=== PATIENT | female | born 1965 | race Caucasian/White ===

== ENCOUNTER 2017-07-04 13:12 | Emergency (ER) | payer BC ==
[~2017-07-04] VITALS: Ht 160 cm; Wt 74.8 kg
[~2017-07-04 13:12] MED LIST: ALBUTEROL2.5 MG/3 M INH; AMLODIPINE BESYL5 MG PO; AZITHROMYCIN250 MG PO; BACLOFEN10 MG PO; BENZONATATE100 MG PO; CARAFATE1 GM/10 ML PO; CATAPRES-TTS 31 EACH TD; CLARITHROMYCIN500 MG PO; CLONIDINE1 EAC2 TD; CODEINE-GUAIFE120 ML PO; CYMBALTA30 MG PO; DIAZEPAM5 MG PO; DOXEPIN HCL10 MG PO; DOXEPIN HCL25 MG PO; FAMOTIDINE20 MG PO; FLORASTOR250 MG PO; FLOVENT HFA12 GM INH; GUAIFENESIN-CODE5 ML PO; HYDROMORPHONE HC2 MG PO; IPRAT-ALBUT 0.5-3 ML INH; LASIX20 MG PO; LEVOFLOXACIN500 MG PO; LOSARTAN POTAS100 MG PO; LOSARTAN-HCTZ1 EAC2 PO; MACROBID 100 M100 MG PO; METOCLOPRAMIDE10 MG PO; MONUROL3 GM PO; MORPHINE SULFAT15 MG PO; NITROFURANTOIN50 MG PO; NORCO 5-325 TA1 EACH PO; NORVASC10 MG PO; NOVOLOG100 UNIT/1; OMEPRAZOLE20 MG PO; ONDANSETRON ODT4 MG PO; OXYCODONE HCL5 MG PO; PHENAZOPYRIDIN100 MG PO; PHENERGAN25 MG RC; PREDNISONE10 MG PO; PREDNISONE20 MG PO; PROAIR HFA8.5 GM INH; PROMETHAZINE HC25 M1 PO; PROMETHEGAN25 MG PR; PYRIDIUM200 MG PO; VALIUM5 MG PO; VANCOMYCIN HCL125 MG PO; VENTOLIN HFA18 GM IH; ZOFRAN ODT4 MG PO
--- OUTSIDE RECORDS SUMMARY | 2017-07-04 14:21 | XMS | Clinical Summary ---
Demographics + + + | Address | [address] | | | [place] [address] | + + + | Home Phone | | + + + | Preferred Language | Unknown | + + + | Marital Status | | + + + | Sabianism Affiliation | PRO | + + + | Race | White | + + + | Ethnic Group | Not or | + + + Author + + + | Author | [facility] | + + + | Organization | [facility] | + + + | Address | Unknown | + + + | Phone | Unavailable | + + + Support +------+ + + + +-------+ | Name | Relationship | Address | Phone | +------+ + + + +-------+ ECON | [address] | | [place] | [address] | +------+ + + + +-------+ ECON | Unknown | | +------+ + + + +-------+ Care Team Providers + +------+ + | Care Double Needle Operator Name | Role | Phone | + +------+ + | Lacho Mcgarry MD | PP | Unavailable | + +------+ + Source Comments ANASTASIAMARLON is fully live on both EpicCare Ambulatory and EpicCare InPatient.[facility] Allergies + + + + + + | Active Allergy | Reactions | Severity | Noted | Comments | | | | | Date | | + + + + + + | Sulfa (Sulfonamide | Rash | | 07/16/19 | "burning" | | Antibiotics) | | | 10 | | + + + + + + Current Medications + + +-------+---------+------+------+-------+ | Prescription | Sig. | Disp. | Refills | Star | End | Statu | | | | | | t | Date | s | | | | | | Date | | | + + +-------+---------+------+------+-------+ | clonidine 0.3 | Apply 1 Patch to | | | 07/02 | | Activ | | mg/24 hr Transdermal | skin every seven | | | 10/18 | | e | | Patch Weekly | days. | | | 10 | | | + + +-------+---------+------+------+-------+ | DULoxetine 30 mg | Take 30 mg by mouth | | | | | Activ | | oral capsule,delayed | once daily. | | | | | e | | release(DR/EC) | | | | | | | + + +-------+---------+------+------+-------+ | omeprazole 20 mg | Take 20 mg by mouth | | | | | Activ | | oral capsule,delayed | two times daily. | | | | | e | | release(DR/EC) | | | | | | | + + +-------+---------+------+------+-------+ | doxepin 25 mg oral | Take 100 mg by mouth | | | | | Activ | | capsule | once daily at | | | | | e | | | bedtime. | | | | | | + + +-------+---------+------+------+-------+ | albuterol 90 | Inhale 1-2 puffs | | | | | Activ | | mcg/actuation | every four hours as | | | | | e | | inhalation HFA | needed. | | | | | | | aerosol inhaler | | | | | | | + + +-------+---------+------+------+-------+ | insulin aspart | Inject 0-10 Units | | | | | Activ | | (NOVOLOG) 100 | under the skin | | | | | e | | unit/mL subcutaneous | (SUBC) three times | | | | | | | solution | daily before meals. | | | | | | | | And take 0-5 units | | | | | | | | nightly | | | | | | + + +-------+---------+------+------+-------+ | prochlorperazine | Insert 25 mg | | | | | Activ | | 25 mg rectal | rectally every six | | | | | e | | suppository | hours as needed. | | | | | | + + +-------+---------+------+------+-------+ | morphine 15 mg | Take 7.5 mg by mouth | | | | | Activ | | oral | every three hours | | | | | e | | tabletIndications: | as needed. | | | | | | | Pain | Indications: Pain | | | | | | + + +-------+---------+------+------+-------+ | diazepam 5 mg oral | Take 5 mg by mouth | | | | | Activ | | tablet | three times daily. | | | | | e | + + +-------+---------+------+------+-------+ | albuterol 0.083% | Inhale 2.5 mg every | | | | | Activ | | 2.5 mg /3 mL (0.083 | four hours as | | | | | e | | %) inhalation | needed. | | | | | | | solution for | | | | | | | | nebulization | | | | | | | + + +-------+---------+------+------+-------+ | hydrOXYzine | Take 25 mg by mouth | | | | | Activ | | pamoate 25 mg oral | four times daily as | | | | | e | | capsuleIndications: | needed. Indications: | | | | | | | For nausea | For nausea | | | | | | + + +-------+---------+------+------+-------+ | ondansetron ODT 4 | Take 4 mg by mouth | | | | | Activ | | mg oral | every six hours as | | | | | e | | tablet,disintegratin | needed. Indications: | | | | | | | gIndications: For | For nausea | | | | | | | nausea | | | | | | | + + +-------+---------+------+------+-------+ | sucralfate 100 | Take 10 mL by mouth | | | | | Activ | | mg/mL oral | four times daily. | | | | | e | | suspension | | | | | | | + + +-------+---------+------+------+-------+ | furosemide 20 mg | Take 20 mg by mouth | | | | | Activ | | oral tablet | once daily. | | | | | e | + + +-------+---------+------+------+-------+ | fluticasone | Inhale 2 puffs two | | | | | Activ | | (FLOVENT HFA) 220 | times daily. | | | | | e | | mcg/actuation | | | | | | | | inhalation aerosol | | | | | | | | (aero) | | | | | | | + + +-------+---------+------+------+-------+ | amLODIPine 10 mg | Take 10 mg by mouth | | | | | Activ | | oral tablet | once daily. | | | | | e | + + +-------+---------+------+------+-------+ | losartan 100 mg | Take 100 mg by mouth | | | | | Activ | | oral tablet | once daily. | | | | | e | + + +-------+---------+------+------+-------+ | verapamil SR 240 | Take 240 mg by mouth | | | | | Activ | | mg oral tablet | two times daily. | | | | | e | | extended release | | | | | | | + + +-------+---------+------+------+-------+ Active Problems + + + | Problem | Noted Date | + + + | Nausea & vomiting | 06/24/2013 | + + + | Abdominal pain | 06/24/2013 | + + + | Diabetes mellitus (HCC) | 06/23/2013 | + + + + + | Overview: A1C 5.6 05/2013 | + + + + + | History of Clostridium difficile infection | 06/23/2013 | + + + + + | Overview: S/p fecal transplant 07/2012 | + + +--------+ + | Asthma | 06/23/2013 | +--------+ + + + | Overview: requiring intubation in 2008. 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 | + + + Resolved Problems + + + + | Problem | Noted | Resolved | | | Date | Date | + + + + | Vocal fold polyp | 07/16/19 | | | | 10 | 0 | + + + + Family History + + +------+ + | Medical History | Relation | Name | Comments | + + +------+ + | Cancer | Mother | | | + + +------+ + + +------+--------+ + | Relation | Name | Status | Comments | + +------+--------+ + | Mother | | | | + +------+--------+ + Social History + + + +--------+ + | Tobacco Use | Types | Packs/Day | Years | Date | | | | | Used | | + + + +--------+ + | Former Smoker | Cigarettes | 1 | 15 | Quit: 07/30/2009 | + + + +--------+ + + + | Comments: down to 0.5 ppd for past 5 yrs. E cigarette | + + + + +---------+ + | Alcohol Use | Drinks/We | oz/Week | Comments | | | ek | | | + + +---------+ + | No | | | | + + +---------+ + + + + | Sex Assigned at | Date Recorded | | | | + + + | Not on file | | + + + Last Filed Vital Signs + + + + | Vital Sign | Reading | Time Taken | + + + + | Blood Pressure | 146/84 | 06/25/2013 8:36 AM PST | + + + + | Pulse | 83 | 06/25/2013 8:36 AM PST | + + + + | Temperature | 36.9 C (98.4 F) | 06/25/2013 8:36 AM PST | + + + + | Respiratory Rate | 18 | 06/25/2013 8:36 AM PST | + + + + | Oxygen Saturation | 97% | 06/25/2013 8:36 AM PST | + + + + | Inhaled Oxygen | - | - | | Concentration | | | + + + + | Weight | 77.1 kg (170 lb) | 06/23/2013 8:58 AM PST | + + + + | Height | 162.6 cm (5' 4") | 06/23/2013 9:28 PM PST | + + + + | Body Mass Index | 29.18 | 06/23/2013 8:58 AM PST | + + + + Plan of Treatment + + + + + | Health Maintenance | Due Date | Last Done | Comments | + + + + + | INFLUENZA VACCINE | | | | | (FLU SHOT) | 7 | | | + + + + + Results Not on filefrom Last 3 Months
--- NOTE | 2017-07-06 14:48 | EKG ---
[facility] [address] [place] [address] Signed Poor data quality, interpretation may be adversely affected Sinus tachycardia Anterior infarct (cited on or before 07-AUG-2016) Abnormal ECG When compared with ECG of 07-AUG-2016 13:54, Nonspecific T wave abnormality, worse in Inferior leads Confirmed by TOBI BOLAÑOS MD ([id number]) on 07/06/2017 2:47:54 PM Electronically Signed By: TOBI BOLAÑOS MD 07/06/17 1448 PATIENT NAME: STEPHANIE MOODY Electrocardiogram DATE OF : 61 PHYSICIAN: TOBI BOLAÑOS MD REPORT #: [id number] REPORT IS CONFIDENTIAL AND NOT TO BE RELEASED WITHOUT AUTHORIZATION
[2017-07-30] MEDS ORDERED: PROMETHAZINE HC25 M1 PO (16:52)
[2017-07-30] MEDS ORDERED: NOVOLOG100 UNIT/1 SUB-Q (17:14)
== END 2017-07-04 18:33 | disposition short-term general hospital (02) ==
LOC: ED 13:12
DX: J45.902 Unspecified asthma with status asthmaticus (principal); E11.9 Type 2 diabetes mellitus without complications; Z90.710 Acquired absence of both cervix and uterus; Z90.49 Acquired absence of other specified parts of digestive tract; Z87.891 Personal history of nicotine dependence; Z88.2 Allergy status to sulfonamides; Z79.899 Other long term (current) drug therapy; Z79.52 Long term (current) use of systemic steroids
CPT/HCPCS: 36600; 71045; 80053; 82803; 83735; 84484; 85025; 87502; 93005; 93010; 94640; 94660; 96374; 96375; 96376; 99285; J2060; J2270; J2405; J2550; J2930; J3475

== ENCOUNTER 2017-07-17 16:34 | Emergency (ER) | payer BC ==
[~2017-07-17] VITALS: Ht 160 cm; Wt 75.1 kg
--- OUTSIDE RECORDS SUMMARY | ~2017-07-17 | XMS | Clinical Summary ---
Demographics + + + | Address | [address] | | | [place] [address] | + + + | Home Phone | | + + + | Preferred Language | Unknown | + + + | Marital Status | | + + + | Hinduism Affiliation | PRO | + + + [...] + + +-------+ ECON | [address] | | [place] | [address] | +------+ + + + +-------+ ECON | Unknown | | +------+ + + + +-------+ Care Team Providers + +------+ + | Care Supervisor Coffee Name | Role | Phone | + +------+ + | Lacho Mcgarry MD | PP | Unavailable | + +------+ + Source Comments ANASTASIAMARLON is fully live on both EpicCare Ambulatory and EpicCare InPatient.[facility] Allergies + + + + + + [...]
--- OUTSIDE RECORDS SUMMARY | ~2017-07-17 | XMS | Clinical Summary ---
Demographics + + + | Address | [address] | | | [place] [address] | + + + | Home Phone | | + + + | Preferred Language | Unknown | + + + | Marital Status | | + + + | Hindu Affiliation | PRO | + + + [...] + + +-------+ ECON | [address] | | [place] | [address] | +------+ + + + +-------+ ECON | Unknown | | +------+ + + + +-------+ Care Team Providers + +------+ + | Care Director News Name | Role | Phone | + +------+ + | Lacho Mcgarry MD | PP | Unavailable | + +------+ + Source Comments ANASTASIAMARLON is fully live on both EpicCare Ambulatory and EpicCare InPatient.[facility] Allergies + + + + + + [...]
--- NOTE | 2017-07-18 12:22 | EKG ---
[facility] [address] [place], [place] [address] Signed Sinus tachycardia Rightward axis Anterior infarct (cited on or before 07-AUG-2016) Abnormal ECG When compared with ECG of 04-JUL-2017 14:33, No significant change was found Confirmed by EFREN CHE MD ([id number]) on 07/18/2017 12:22:36 PM Electronically Signed By: EFREN CHE MD 07/18/17 1222 PATIENT NAME: STEPHANIE MOODY Electrocardiogram DATE OF : 61 PHYSICIAN: EFREN CHE MD REPORT #: [id number] REPORT IS CONFIDENTIAL AND NOT TO BE RELEASED WITHOUT AUTHORIZATION
[2017-07-30] MEDS ORDERED: PROMETHAZINE HC25 M1 PO (16:52)
[2017-07-30] MEDS ORDERED: NOVOLOG100 UNIT/1 SUB-Q (17:14)
== END 2017-07-17 18:58 | disposition home or self-care (01) ==
LOC: ED 16:34
DX: J45.901 Unspecified asthma with (acute) exacerbation (principal); E11.9 Type 2 diabetes mellitus without complications; Z87.891 Personal history of nicotine dependence; Z88.2 Allergy status to sulfonamides; Z79.899 Other long term (current) drug therapy
CPT/HCPCS: 36415; 71045; 80053; 85025; 93005; 93010; 94640; 94660; 96374; 96375; 96376; 99283; J2060; J2930; J3010

== ENCOUNTER 2017-08-04 07:00 | Day surgery (SDC) | payer BC ==
[~2017-08-04] VITALS: Ht 162.6 cm; Wt 76.9 kg
[~2017-08-04 07:00] MED LIST changes: +NOVOLOG100 UNIT/1 SUB-Q
--- NOTE | 2017-08-04 09:38 | NUR ---
PT ALERT, ORIENTED AND SUPPORTED BY HER BOOKER. BOTH PLEASANT, PT A LITTLE ANXIOUS-BOOKER ENCOURAGING AND VERY SUPPORTIVE. PT REQUESTED PRAYER WILL CONTINUE TO FOLLOW NEEDED
[2017-08-04] MEDS ORDERED: HYDROMORPHONE HC4 MG PO (11:16)
--- NOTE | 2017-08-04 14:19 | NUR ---
08/04/17 1419 Carey Nassar 1101 PT ARRIVED IN PACU AWAKE TALKING TO STAFF. PORTABLE XRAY DONE. DR LOOKED AT XRAY AND PT OK TO USE ANYTIME. 1130 SIPPING ON WATER. 1145 DC INSTRUCTIONS GIVEN TO PT/SPOUSE. LEFT VIA W/C AT 1148.
--- NOTE | 2017-08-06 14:12 | OR ---
[facility] [address] [place], [place] [address] Signed DATE OF OPERATION: 08/04/2017 SURGEON: Renetta Galicia MD PREOPERATIVE DIAGNOSES: 1. Chronic recurrent life-threatening asthma. 2. Obesity. POSTOPERATIVE DIAGNOSES: 1. Chronic recurrent life-threatening asthma. 2. Obesity. PROCEDURES: 1. Right internal jugular Port-A-Cath placement (port over right pectoralis). 2. Surgeon-directed fluoroscopy. ANESTHESIA: Local with monitored anesthesia care; Elma Hutton CRNA. INDICATION: This is an obese, 52-year-old white woman is a patient of Dr. Servin. She has had several bouts of very severe asthmatic attacks, which have required intubation. She has exceptionally poor peripheral access. Request is made by Dr. Servin for consideration of a Port-A-Cath device to provide prophylaxis on the likely need for emergent venous access in the future. The risks of bleeding, infection, pneumothorax, failure of the device and other unforeseen complications related to its placement have been reviewed in detail. She understands and wished to proceed. FINDINGS: Easy access to the right internal jugular vein was noted with good dark nonpulsatile blood. The catheter was tunneled over the clavicle, so as to avoid risks of shear injury to the catheter and the port placed in the right pectoral area. Good function of catheter was noted at conclusion of procedure. DESCRIPTION OF PROCEDURE: The patient was brought to the operating room and placed in mild Trendelenburg position. The neck and torso were prepared with a chlorhexidine solution and draped sterilely. Preoperative antibiotic Ancef was given. Sequential compression device stockings were used. Her head was turned to the left and 1% lidocaine injected over the right sternocleidomastoid muscle. Using the Seldinger technique, the right internal jugular Electronically Signed By: RENETTA GALICIA MD 08/06/17 1412 PATIENT NAME: STEPHANIE MOODY OPERATIVE REPORT DATE OF : 61 REPORT #: [id number] PHYSICIAN: RENETTA GALICIA MD PCP: LACHO SERVIN MD REPORT IS CONFIDENTIAL AND NOT TO BE RELEASED WITHOUT AUTHORIZATION [facility] [address] [place], [place] [address] Signed vein was easily accessed with single pass showing dark nonpulsatile blood. A flexible J-wire was passed down the needle. Fluoroscopy was used to confirm the wire into the right heart system. A transverse incision was made over the right pectoralis after injection of local anesthesia, allowing for creation of a pocket. The port device was partially secured to the pectoralis fascia. At the insertion site of the right neck, an incision was made with an #11 blade and subsequently dilator and peel-away sheath introducer passed over the wire. The wire and dilator were removed and vigorous retrograde dark nonpulsatile bleeding was noted from the sheath. The previously inspected and irrigated Groshong catheter was passed down the introducer as far as possible and the peel-away sheath introducer removed. Aspiration on the catheter showed dark nonpulsatile blood. Fluoroscopy was used to withdraw the tip of the catheter to be in the superior vena cava. A tunneling device was passed from the catheter site to the pocket directly over the clavicle with all the care after local injection of anesthesia. The catheter was then drawn through the tunnel to the pocket itself. The catheter was cut to appropriate length and secured to the port device using the enclosed collar device. It was then secured to the pectoralis fascia more fully. It appeared to have a kink on and unfortunately. The port was freed from the pectoralis. The redundant catheter excised and a new collar and so forth used to reapply the catheter to the port. A definition some catheter withdrew from the superior vena cava no doubt from this. The port was then secured once again in a way that did not allow for kinking of the catheter in any way. Good function was noted with the angled Joyce needle. The pocket was then closed with interrupted 2-0 Vicryl and skin closed with running subcuticular 3-0 Vicryl. Access to the port was once again undertaken percutaneously with angled Joyce needle showing easy withdrawal of blood and easy infusion of heparinized saline. Steri-Strips were applied to the skin as was Mepilex silver sponge dressing. The neck incision was secured with a 3-0 Vicryl and a Steri-Strip. The patient was taken to the recovery room after awakening from sedation in good condition. Blood loss was less than 10 mL. The upright chest x-ray was performed in the recovery room showing no sign of complication. The tip of the catheter was in the upper superior vena cava, possibly the innominate vein, but the tip below the clavicular head and in good position. There is Electronically Signed By: RENETTA GALICIA MD 08/06/17 1412 PATIENT NAME: STEPHANIE MOODY OPERATIVE REPORT DATE OF : 61 REPORT #: [id number] PHYSICIAN: RENETTA GALICIA MD PCP: LACHO SERVIN MD REPORT IS CONFIDENTIAL AND NOT TO BE RELEASED WITHOUT AUTHORIZATION [address] [address] Signed no evidence of angulation deformity on the catheter in any way. MD RAMIRO [place]/MODL /[id number] cc: Lacho Servin MD Copies: LACHO SERVIN MD ~ Electronically Signed By: RENETTA GALICIA MD 08/06/17 1412 PATIENT NAME: STEPHANIE MOODY OPERATIVE REPORT DATE OF : 61 REPORT #: [id number] PHYSICIAN: RENETTA GALICIA MD PCP: LACHO SERVIN MD REPORT IS CONFIDENTIAL AND NOT TO BE RELEASED WITHOUT AUTHORIZATION
== END 2017-08-04 11:48 | disposition home or self-care (01) ==
LOC: DS 07:00
PROVIDERS: Surgery
PROC: 05HM33Z Insertion of Infusion Device into Right Internal Jugular Vein, Percutaneous Approach (ICD-10-PCS; 2017-08-04)
PROC: B513YZA Fluoroscopy of Right Jugular Veins using Other Contrast, Guidance (ICD-10-PCS; 2017-08-04)
PROC: 0JH60XZ Insertion of Tunneled Vascular Access Device into Chest Subcutaneous Tissue and Fascia, Open Approach (ICD-10-PCS; principal; 2017-08-04 08:45)
DX: J45.909 Unspecified asthma, uncomplicated (principal); E66.3 Overweight; R09.89 Other specified symptoms and signs involving the circulatory and respiratory systems; E11.9 Type 2 diabetes mellitus without complications; K21.9 Gastro-esophageal reflux disease without esophagitis; I10 Essential (primary) hypertension; Z88.5 Allergy status to narcotic agent; Z88.2 Allergy status to sulfonamides; Z88.8 Allergy status to other drugs, medicaments and biological substances; Z87.891 Personal history of nicotine dependence; Z98.890 Other specified postprocedural states; Z90.710 Acquired absence of both cervix and uterus; Z90.49 Acquired absence of other specified parts of digestive tract; Z79.52 Long term (current) use of systemic steroids; Z79.899 Other long term (current) drug therapy; Z79.891 Long term (current) use of opiate analgesic; Z68.28 Body mass index [BMI] 28.0-28.9, adult
CPT/HCPCS: 00532; 71045; 77001; C1788; J0690; J1644; J1720; J2250; J2405; J2704; J3010; J7120

== ENCOUNTER 2018-01-29 09:34 | Emergency (ER) | payer BC ==
[~2018-01-29] VITALS: Ht 162.6 cm; Wt 76.9 kg
[~2018-01-29 09:34] MED LIST changes: +HYDROMORPHONE HC4 MG PO
[2018-01-29] MEDS ORDERED: CLONIDINE1 EAC2 TD (09:51)
[2018-01-29] MEDS ORDERED: DIAZEPAM5 MG PO (09:51)
[2018-01-29] MEDS ORDERED: CIPRO500 MG PO (13:06)
[2018-01-29] MEDS ORDERED: NORCO 5-325 TA1 EACH PO (13:06)
== END 2018-01-29 13:21 | disposition home or self-care (01) ==
LOC: ED 09:34
DX: N39.0 Urinary tract infection, site not specified (principal); E11.9 Type 2 diabetes mellitus without complications; Z87.891 Personal history of nicotine dependence; Z88.2 Allergy status to sulfonamides; Z88.8 Allergy status to other drugs, medicaments and biological substances; Z88.5 Allergy status to narcotic agent
CPT/HCPCS: 36415; 74176; 80053; 81001; 83605; 83690; 85025; 87088; 96361; 96374; 96375; 96376; 99284; J0696; J1885; J2270; J2405; J7030

== ENCOUNTER 2018-12-02 19:02 | Emergency (ER) | payer BC ==
[~2018-12-02] VITALS: Ht 162.6 cm; Wt 81.9 kg
[~2018-12-02 19:02] MED LIST changes: +CIPRO500 MG PO; +NOVOLOG FL100 UNIT/1 SUB-Q; +VIRTUSSIN AC L118 ML PO
--- OUTSIDE RECORDS SUMMARY | 2018-12-02 19:04 | XMS ---
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 Niurka VISIT COUNT (12 MO.) [address] [place] [address] TOTAL 4 NOTE: Visits indicate total known visits. ED/UCC VISIT TRACKING (12 MO.) 12/02/2018 19:03 [facility] [place] TYPE: Emergency COMPLAINT: - BURN 11/02/2018 10:50 [facility] [place] TYPE: Emergency COMPLAINT: - DIFFICULTY BREATHING DIAGNOSES: - Allergy status to other drugs, medicaments and biological substances status - Shortness of breath - Type 2 diabetes mellitus without complications - residential (current) use of systemic steroids - Allergy status to sulfonamides status - oysterman (current) use of insulin - Other dedicated intermodal truck driver (current) drug therapy - Allergy status to narcotic agent status - Personal history of nicotine dependence - Unspecified asthma with (acute) exacerbation 04/08/2018 17:23 [facility] TYPE: Emergency COMPLAINT: - SOB 01/29/2018 09:34 [facility] TYPE: Emergency COMPLAINT: - ABDOMINAL/FLANK PAIN DIAGNOSES: - Urinary tract infection, site not specified - Allergy status to other drugs, medicaments and biological substances status - Unspecified abdominal pain - Personal history of nicotine dependence - Type 2 diabetes mellitus without complications - Allergy status to sulfonamides status - Allergy status to narcotic agent status INPATIENT VISIT TRACKING (12 MO.) 11/02/2018 14:31 [facility] TYPE: General Medicine DIAGNOSES: - Asthma exacerbation [facility]2018 [facility] TYPE: General Medicine DIAGNOSES: - Asthma - Severe persistent asthma with (acute) exacerbation 04/08/2018 22:21 [facility] [place] TYPE: Critical Care COMPLAINT: - ASTHMA EXACERBATION DIAGNOSES: - Personal history of other infectious and parasitic diseases - Essential (primary) hypertension - Pneumonia, unspecified organism - Acute frontal sinusitis, unspecified - residential (current) use of systemic steroids - Other chest pain - Allergy status to narcotic agent status - Other dedicated intermodal truck driver (current) drug therapy - Allergy status to other drugs, medicaments and biological substances status - residential (current) use of opiate analgesic - oysterman (current) use of aromatase inhibitors - Acute respiratory failure with hypoxia - Anxiety disorder, unspecified - Acute frontal sinusitis, unspecified - residential (current) use of antibiotics - Prediabetes - Allergy status to sulfonamides status - Prediabetes - Allergy status to narcotic agent status - oysterman (current) use of opiate analgesic - Personal history of nicotine dependence - Other nursing home (current) drug therapy - Nausea with vomiting, unspecified - residential (current) use of antibiotics - Pneumonia, unspecified organism - Nausea with vomiting, unspecified - Essential (primary) hypertension - Allergy status to other drugs, medicaments and biological substances status - oysterman (current) use of aromatase inhibitors - Allergy status to sulfonamides status - Sedative, hypnotic or anxiolytic dependence, uncomplicated - Personal history of nicotine dependence - Unspecified asthma with (acute) exacerbation - oysterman (current) use of systemic steroids - Anxiety disorder, unspecified - Sedative, hypnotic or anxiolytic dependence, uncomplicated - Other chest pain - Personal history of other infectious and parasitic diseases - Acute respiratory failure with hypoxia [email or web address]
[2018-12-02] MEDS ORDERED: NORCO 5-325 TA1 EACH PO (19:24)
== END 2018-12-02 19:37 | disposition home or self-care (01) ==
LOC: ED 19:02
PROC: 2W24X4Z Dressing of Chest Wall using Bandage (ICD-10-PCS; principal; 2018-12-02)
DX: T21.21XA Burn of second degree of chest wall, initial encounter (principal); E11.9 Type 2 diabetes mellitus without complications; Z87.891 Personal history of nicotine dependence; Z88.2 Allergy status to sulfonamides; Z90.49 Acquired absence of other specified parts of digestive tract; Z90.710 Acquired absence of both cervix and uterus; Z88.5 Allergy status to narcotic agent; Z88.8 Allergy status to other drugs, medicaments and biological substances; Z79.4 Long term (current) use of insulin; Z79.899 Other long term (current) drug therapy; X12.XXXA Contact with other hot fluids, initial encounter
CPT/HCPCS: 16020; 99283-25

== ENCOUNTER 2019-02-11 10:36 | Inpatient (IN) | payer BC ==
[~2019-02-11] VITALS: Ht 162.6 cm; Wt 85.7 kg
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
--- NOTE | 2019-02-11 14:45 | NUR ---
PT IS AWAKE AND ALERT X4, ABLE TO TRANSFER FROM [place] TO BED INDEPENDENTLY. PT C/O 7/10 RIB PAIN WITH COUGHING. PT HAS SMALL AMOUNTS OF EMISIS AFTER COUGHING FITS. PT IV SITES ARE INTACT, BLOOD RETURN IS OBTAINED EASILY, BOTH SITES FLUSH EASILY. PT SKIN IS INTACT.
--- NOTE | 2019-02-11 15:07 | NUR ---
30 MG IV TORADOL GIVEN FOR PT C/O 12/08 RIB/BACK PAIN. 10 MG IV COMPAZINE GIVEN FOR CONTINUED EPISODES OF EMISIS.
--- NOTE | 2019-02-11 16:08 | NUR ---
VISTARIL 100 MG PO GIVEN PER PT REQUEST FOR "SOMETHING FOR ANXIETY". TESSALON PEARLS AND ROBITUSSIN GIVEN FOR PT CONTINUED HARSH COUGH. PT ABLE TO BETSY APPLESAUCE WITH MEDS.
--- NOTE | 2019-02-11 16:38 | NUR ---
PT ABLE TO AMBULATE TO BATHROOM INDEPENDENTLY, VOIDED 200 ML. THEN AMBULATED BACK TO BED. PT DENIES NAUSEA AT THIS TIME AND IS ABLE TO TAKE HOT TEA. PT STATES "I'M NOT COUGHING ANY MORE". PT DENIES PAIN AT THIS TIME.
--- NOTE | 2019-02-11 17:30 | NUR ---
pt given 1 mg iv ativan for reported anxiety.
--- NOTE | 2019-02-11 19:30 | NUR ---
PT REPORT RECIEVED FROM AURELIA SANDS, CARE OF PT ASSUMED AT THIS TIME.
--- NOTE | 2019-02-11 19:53 | NUR ---
IN PT ROOM FOR ASSESSMENT AND MEDICATION ADMINISTRATION. PT COMPLAINS OF NAUSEA, BUT DENIES PAIN. SPOKE WITH PT ABOUT PLAN OF CARE FOR NIGHT AND EDUCATION ABOUT MEDICATION MANAGEMENT. PT VERBALIZED UNDERSTANDING OF EDUCATION. UPON ASSESSMENT, PT HAS AUDIBLE EXPIRATORY AND INSPIRATORY WHEEZES. RT IN TO ADMINISTER BREATHING TREATMENT AT THIS TIME WELL.
--- NOTE | 2019-02-11 21:05 | NUR ---
IN PT ROOM FOR MEDICATION ADMINISTRATION. PT UP TO BATHROOM. STAND BY ASSIST ONLY REQUIRED FOR AMBULATION. GAIT STEADY. PT PERFORMED PM ADLS AT THIS TIME. REPORTS MODERATE ANXIETY, BUT NO REPORTS OF PAIN. AUDITORY EXPIRATORY AND INSPIRATORY WHEEZES WORSEN WITH AMBULATION AND ACTIVITY. RESPIRATORY RATE IN THE HIGH 20S. OXYGEN SATURATIONS REMAIN IN THE MID 90S. CALL LIGHT WITHIN REACH. NO FURTHER REQUESTS AT THIS TIME.
--- NOTE | 2019-02-11 21:28 | NUR ---
IN TO ADMINISTER PRN MEDICATION FOR ANXIETY, PT REPORTS A RETURNING OF NAUSEA AT THIS TIME. DENIES NEED FOR MEDICAITON. CALL LIGHT WITHIN REACH. NO FURTHER REQUESTS AT THIS TIME.
--- NOTE | 2019-02-11 23:39 | NUR ---
PT REPORTS ONGOING 8/10 RIB PAIN THAT HAS NOT DECREASED WITH TORIDOL. TWO MG OF MORPHINE ADMINISTERED AT THIS TIME. PT ALSO COMPLAINS OF SEVERE ABDOMINAL CRAMPING. BOWEL TONES ACTIVE IN ALL FOUR QUADRANTS.
--- NOTE | 2019-02-11 23:58 | NUR ---
PT MEDICATED FOR NAUSEA. REPORTS PAIN HAS NOT REDUCED AT ALL SINCE DOSE OF MORPHINE WAS ADMINISTERED.
--- NOTE | 2019-02-12 02:13 | NUR ---
RESPONDED TO CALL LIGHT, PT REQUESTING MEDICATION FOR ANXIETY. PT UP TO BATHROOM, HEART RATE IN THE 120S WITH AMBULATION. PT MEDICATED AT THIS TIME.
--- NOTE | 2019-02-12 03:40 | NUR ---
IN TO ASSESS PATIENT, COMPLAINS OF NAUSEA, AND SHORTNESS OF BREATH. PT CONTINUES TO HAVE AUDIBLE INSPIRATORY AND EXPIRATORY WHEEZES, AND WHEEZES IN BOTH LUNG BASES. HEART RATE REMAINS BETWEEN 110-120. NAUSEA MEDICATION GIVEN. RT CALLED TO ADMINISTER BREATHING TREATMENT.
--- NOTE | 2019-02-12 04:12 | NUR ---
PTS HEART RATE SUSTAINED IN THE 110'S- 120'S AT REST FOR THE LAST SEVERAL HOURS. DR BOLAÑOS NOTIFIED. NO NEW ORDERS AT THIS TIME.
--- NOTE | 2019-02-12 05:17 | NUR ---
RESPONDED TO PATIENT CALL LIGHT, GIVEN TEA AND WATER. PT DENIES NAUSEA BUT IS REQUESTING PAIN MEDICATION. EDUCATED PATIENT ON TIME MEDICATION IS DUE. PT STATES HER PAIN IS TOLERABLE AND SHE CAN WAIT FOR MEDICATION. REFUSES TYLENOL.
--- NOTE | 2019-02-12 06:19 | NUR ---
PT RECIEVED IV PAIN MEDICATION. LOOKING AT MENU TO CHOSE A BREAKFAST. IS REQUESTING A LAXATIVE AT THIS TIME.
[2019-02-12] MEDS ORDERED: AMLODIPINE BESY10 MG PO ×2 (07:57)
[2019-02-12] MEDS ORDERED: DIAZEPAM5 MG PO ×2 (07:59)
[2019-02-12] MEDS ORDERED: PREDNISONE20 MG PO (08:01)
--- NOTE | 2019-02-12 08:20 | NUR ---
IV SITE IN RT FOREARM IS INTACT, NO REDNESS OR SWELLING NOTED, FLUSHES EASILY. INDWELLING PORT SITE RETURNS BLOOD POSITIONALLY, FLUSHES EASILY, HEP LOCKED. PT C/O NAUSEA, 10 MG COMPAZINE IV GIVEN, PT C/O ANXIETY 1 MG IV ATIVAN AND PO 100 MG VISTARIL GIVEN, PT C/O 8/10 RIB PAIN, 30 MG IV TORADOL GIVEN. PT IS AWAKE AND ALERT X4. HAS FINISHED 100% OF HER BREAKFAST. PT ABLE TO AMBULATE TO THE BATHROOM INDEPENDENTLY.
--- NOTE | 2019-02-12 09:30 | NUR ---
IN TO SEE PT, HAS EXPLAINED THE PLAN OF CARE FOR THE NEXT 24 HOURS. PT EXPRESSES DESIRE TO GO HOME TODAY, IS NOT WILLING TO DC PT UNTIL TOMORROW DUE HER MEDICAL NEEDS.
--- NOTE | 2019-02-12 10:55 | NUR ---
FULL REPORT GIVEN TO AURORA MOSES ON MED/SURG. ALL QUESTIONS ANSWERED. NO MEDICATIONS IN PT KITS BIN.
--- NOTE | 2019-02-12 11:02 | NUR ---
PT TRANSFERED TO MED/SURG ROOM 109, ALL PERSONAL BELONGINGS WENT WITH PT. PT TRANSFERED IN THE ORA, BETSY ACTIVITY WELL. PT IS ALERT AND ORIENTED X4, HAS BEEN UPDATED ON THE PLAN OF CARE.
--- NOTE | 2019-02-12 11:24 | NUR ---
PT RECEIVED FROM CCU. PT RESTING IN BED. PT WITH COUGHING FIT. TACHYCARDIC HR IN 120'S, VS OTHERWISE WNL. P WITH INSPIRATORY AND EXPIRATORY WHEEZE THROUGHOUT, ON ROOM AIR. IV SALINE LOCKED. DISCUSSED PLAN OF CARE. PT REQUESTIGN WATER AND TEA, PROVIDED. CALL LIGHT WITHIN REACH.
--- NOTE | 2019-02-12 12:24 | NUR ---
PT GIVEN 3 UNITS SS HUMALOG FOR BG 212. PT RECEIVING NEB, PT REQUEST FOR ATIVAN WITH NEB, 1 MG IV GIVEN. PT RESTING IN BED. PT WITH GOOD APPETITE. PT DENIES OTHER NEEDS AT THIS TIME.
--- NOTE | 2019-02-12 14:03 | NUR ---
PT COMPLAINT OF FEELING NAUSEATED, GIVEN 12.5 MG IV PHENERGAN PER ORDER. IV SOLUMEDROL GIVEN. PT RESTING IN BED, FAMILY AT BEDSIDE. PT DENIES OTHER NEEDS AT THIS TIME.
--- NOTE | 2019-02-12 15:08 | NUR ---
Medications reconciled using pharmacy records and patient interview
--- NOTE | 2019-02-12 17:40 | NUR ---
PT BLOOD GLUCOSE 198, GIVEN 3 UNITS SS HUMALOG. PT AMBULATING TO BATHROOM, TACHYCARDIC WITH ACTIVITY. PT REQUESTING PAIN MEDICATION, GIVEN 2 MG IV MORPHINE PER ORDER. PT DENIES OTHER NEEDS AT THIS TIME.
--- NOTE | 2019-02-12 17:44 | NUR ---
PT TRANSFERED FROM CCU. PT ON ROOM AIR, INSPIRATORY AND EXPIRATORY WHEEZE THROUGHOUT, FREQUENT DRY HACKING COUGH. PT CALLS FREQUENTLY FOR ANTIANXIETY MEDICATIONS AND PAIN MEDICATION. PT TOLERATING CARB CONTROL DIET, BLOOD GLUCOSE 198 AT DINNER, RECEIVED 3 UNITS SS HUMALOG. PT INDEPENDENT IN ROOM, TACHYCARDIC WITH ACTIVITY. PORT TO RIGHT CHEST, HEPARIN LOCKED, IV TO RIGHT ARM SL. PT VOIDING QS.
--- NOTE | 2019-02-12 19:05 | NUR ---
REPORT RECEIVED FROM OFFGOING RNAURORA.
--- NOTE | 2019-02-12 20:01 | NUR ---
PT REQUESTS HER PRIMARY RN, MANAGER COMMODITIES TO ROOM. PT TALKING FAST, APPEARS ANXIOUS. PT STATES "I NEED SOMETHING FOR MY PAIN, AND IF NOTHING IS AVAILABLE, CALL THE DOCTOR." PRN AND SCHEDULED MEDICATIONS ADMINISTERED. PT ASSESSMENT COMPLETE. PT HAVING SMALL AMOUNTS OF EMESIS WHILE MANAGER COMMODITIES IN ROOM, STATES THIS IS RELATED TO COUGHING, DENIES NAUSEA. REPORTS SLIGHT SOB, IMPROVED WITH NEB TREAWTMENT. PT RATES PAIN 7/10 TO R SIDED RIBS AND BACK. PT STATES ALSO THAT HER "GUTS HURT". PT STATES, "MAYBE I HAVE C-DIFF". PT REPORTS EXPERIENCING SEVERAL LOOSE STOOLS. PT UP TO USE THE BATHROOM WHILE MANAGER COMMODITIES IN ROOM TO HAVE BM. PIV AND PORT ACCESSED FLUSHED. PT REPORTS PIV SITE TENDER, ASKS " IS THAT INFILTRATED?" NO S/SX OF INFILTRATION NOTED. FLUSHES WELL, NO BLOOD RETURN. PT PROVIDED WITH NEW HAT, TOILET PAPER REPLACED. PT DENIES FURTHER NEEDS. CALL LIGHT IN REACH.
--- NOTE | 2019-02-12 20:43 | NUR ---
PT RESTING IN BED WITH EYES CLOSED. RESPIRATIONS LABORED, EVEN, RR 22. PT DOES NOT WAKE WHILE TOWEL FOLDER IN DOORWAY, APPEARS TO BE SLEEPING. CALL LIGHT IN REACH.
--- NOTE | 2019-02-12 22:19 | NUR ---
ELECTRONIC WARFARE SPECIALIST TO PT'S ROOM FOR SCHEDULED MEDICATION ADMINISTRATION. PT RESTING IN BED WITH EYES CLOSED. RESPIRATIONS LABORED, EVEN, RR 18. PT WAKES EASILY TO VOICE. CONTNUES TO RATE PAIN 6/10 TO R RIBS/BACK. PT REPORTS ANOTHER LIQUID BM, VERY SMALL AMOUNT NOTED IN THE HAT UPON THIS WRITERS ASSESSMENT. PT DENIES FURTHER NEEDS. AGREES TO USE CALL LIGHT FOR NEEDS. CALL LIGHT IN REACH.
--- NOTE | 2019-02-13 00:14 | NUR ---
PT UTILIZES CALL LIGHT, REQUESTS HOT TEA, PRN MEDICATIONS. PRN'S ADMINISTERED. PT STATES "I NEED TO GO TO A DIFFERENT HOSPITAL." WHEN LIZZIETIER INQUIRES, PT STATES SHE NEEDS TO SEE HER CSR RETAIL AT [facility]. PT ALSO STATES THAT SHE HAD AN ABNORMAL ECHOCARDIOGRAM THAT SHE IS CONCERNED ABOUT. PT DENIES FURTHER NEEDS FROM THIS DIRECTOR TRADE. RT IN ROOM TO ADMINISTER NEB. CALL LIGHT IN REACH.
--- NOTE | 2019-02-13 00:40 | NUR ---
PT UTILIZES CALL LIGHT, REQUESTS "SYSTEMIC PAIN MEDICATION". PT INFORMED THAT NEXT PRN FOR PAIN CONTROL WILL BE AVAILABLE AT 0200. PT OFFERED ICE/HEAT FOR PAIN CONTROL. PT DECLINES. DECLINES FURTHER NEEDS AT THIS TIME. CALL LIGHT IN REACH.
--- NOTE | 2019-02-13 01:55 | NUR ---
PT UTILIZES CALL LIGHT, REQUESTS PRN PAIN MEDCIATION FOR ACHING. PT APPEARS ANXIOUS. PRNS ADMINISTERED. PT RATES PAIN 7-8/10 TO "GUTS", R RIBS, AND BACK. PT REPORTS SOB. STATES IT IS SOMEWHAT IMPROVED WITH RECENT NEB TREATMENT. PT WITH AUDIBLE WHEEZING, INSPIRATORY AND EXPIRATORY WHEEZE AUSCULTATED TO ALL LUNG JARAMILLO. PT STATES THAT SHE WISHES "THE MOISTURE" IN HER LUNGS WOULD GO AWAY, SHE IS AFRAID SHE WILL INFECT "EVERYONE". PT REQUETS APPLE AND CRANBERRY JUICE. DENIES FURTHER NEEDS AT THIS TIME. PT UP TO USE THE BATHROOM AND BACK TO BED UNASSISTED. NO FURTHER EPISODES OF LOOSE STOOL NOTED BY THIS SCHOOL AGE LEAD TEACHER. CALL LIGHT WITHIN PT'S REACH.
--- NOTE | 2019-02-13 03:16 | NUR ---
PT RESTING IN BED WITH EYES CLOSED. APPERAS TO BE SLEEPING. RR 20. CALL LIGHT IN REACH.
--- NOTE | 2019-02-13 04:33 | NUR ---
PT UTILIZES CALL LIGHT, REQUESTS TO SPEAK TO PRIMARY RN. STITCHING DEPARTMENT SUPERVISOR TO ROOM, PT ASKS "CAN I HAVE INBUPROFEN?" PT INFORMED THAT TYLENOL IS AVAILABLE, ASKED IF PT WOULD LIKE THAT INSTEAD. SHE STATES "I'LL TAKE ANY MEDS". PT RATES PAIN 7-8/10 TO R SIDE AND BACK. STATES IT IS KEEPING HER AWAKE. PT DENIES FURTHER NEEDS. CALL LIGHT IN REACH.
--- NOTE | 2019-02-13 04:50 | NUR ---
PT UTILIZES CALL LIGHT, ASKS "CAN I HAVE MORE MEDS YET?" EDUCATION PROVIDED, PT INFORMED NEXT AVAILABILTY FOR PAIN MEDICATIONS IS AT 0600. PT STATES UNDERSTANDING. DENIES FURTHER NEEDS. CALL LIGHT IN REACH.
--- NOTE | 2019-02-13 07:15 | NUR ---
REPORT RECEIVED BY RN. PATIENT SLEEPING IN BED.
--- NOTE | 2019-02-13 09:15 | NUR ---
AM MEDICATIONS ADMINISTERED. PORT ACCESSED PER PROTOCOL AND HEPARIN LOCKED. BLOOD GLUCOSE OF 163 AND ONE UNIT OF INSULIN PROVIDED. BREAKFAST DELIVERED. PATIENT REPORTS PAIN OF 6/10 AND PRN PAIN MEDICATION ADMINISTERED. VS AND ASSESSMENT COMPLETE. PATIENT VOIDING AND AMBULATING INDEPENDENTLY IN THE ROOM. PATIENT COUGHING PERSISTENTLY, NONPRODUCTIVE. INSPIRATORY AND EXPIRATORY WHEEZES IN ALL LOBES, DIMINISHED AND COURSE SOUNDS THROUGHOUT LUNGS. SPO2 OF 92% ON RA. PATIENT SITTING UP IN BED WATCHING TV. DENIES ANY FURTHER NEEDS AT THIS TIME, CALL LIGHT WITHIN REACH.
[2019-02-13] MEDS ORDERED: BENZONATATE100 MG PO ×2 (10:21)
[2019-02-13] MEDS ORDERED: PREDNISONE20 MG PO ×2 (10:23)
--- NOTE | 2019-02-13 11:16 | NUR ---
DISCHARGE EDUCATION PROVIDED. PORT WAS HEPARIN LOCKED AND DEACCESSED PER PROTOCOL. MINIMAL BLEEDING. DISCUSSED FOLLOW UP APPOINTMENT WITH PROVIDER. PATIENT VERBALIZED UNDERSTANDING OF SIGNS AND SYMPTOMS TO CALL DRS OFFICE. PARTIAL PRESCRIPTION FILLED BY PHARMACY. PATIENT AMBULATES WITH NO ASSIST OUT OF HOSPITAL. ALL PERSONAL BELONGINGS WERE REMOVED FROM THE ROOM.
[2019-02-14] MEDS ORDERED: FLOMAX0.4 MG PO (20:26)
== END 2019-02-13 11:00 | disposition home or self-care (01) | DRG 202 ==
LOC: ED 10:36 → CCU 10:38 → MS 14:37
PROVIDERS: ADMIT Internal Medicine
DX: J45.51 Severe persistent asthma with (acute) exacerbation (principal); F13.20 Sedative, hypnotic or anxiolytic dependence, uncomplicated; E11.9 Type 2 diabetes mellitus without complications; I10 Essential (primary) hypertension; F41.9 Anxiety disorder, unspecified; Z79.4 Long term (current) use of insulin; Z79.899 Other long term (current) drug therapy; Z88.5 Allergy status to narcotic agent; Z88.2 Allergy status to sulfonamides; Z88.8 Allergy status to other drugs, medicaments and biological substances
CPT/HCPCS: 71045; 71260; 80053; 83036; 83735; 84484; 85025; 94640; 94644; 94668; 99285-25; J0780; J1650; J1815; J1885; J2060; J2270; J2405; J2550; J2930; Q0177; Q9967

== ENCOUNTER 2019-02-14 14:15 | Emergency (ER) | payer BC ==
[~2019-02-14] VITALS: Ht 162.6 cm; Wt 86.0 kg
[~2019-02-14 14:15] MED LIST changes: +AMLODIPINE BESY10 MG PO
--- OUTSIDE RECORDS SUMMARY | 2019-02-14 14:18 | XMS ---
PreManage Notification: STEPHANIE MOODY Security Otc Clerk Events No recent Security Events currently on file CRITERIA MET - ADELINA - [facility] - 2 Visits in 30 Days [facility] PHONE: [phone] MALATHI, Primary Care 06/01/2015-Beth PACHECO [facility] PHONE: [phone] Gege has no Care Guidelines for this patient. Niurka VISIT COUNT (12 MO.) [address] [place] [address] TOTAL 5 NOTE: Visits indicate total known visits. ED/UCC VISIT TRACKING (12 MO.) 02/14/2019 14:16 [facility] [place] TYPE: Emergency COMPLAINT: - BREATHING PROBLEMS 02/11/2019 10:37 [facility] TYPE: Emergency [...] medicaments and biological substances status - Other jail (current) drug therapy - Allergy status to sulfonamides status - terminal supervisor (current) use of insulin - Acquired absence [...] Type 2 diabetes mellitus without complications - terminal supervisor (current) use of systemic steroids - Allergy status to sulfonamides status - custodial (current) use of insulin - Other jail (current) drug therapy - Allergy status to narcotic agent status - Personal history of nicotine dependence - Unspecified asthma with (acute) exacerbation 04/08/2018 17:23 [facility] [place] TYPE: Emergency COMPLAINT: - SOB INPATIENT VISIT TRACKING (12 MO.) 02/11/2019 10:38 [facility] TYPE: Observation COMPLAINT: - SEVERE ASTHMA EXACERBATION DIAGNOSES: - Essential (primary) hypertension - Anxiety disorder, unspecified - Allergy status to other drugs, medicaments and biological substances status - Other intermission coordinator (current) drug therapy - Severe persistent asthma with (acute) exacerbation - Allergy status to sulfonamides status - custodial (current) use of insulin - Type 2 diabetes mellitus without complications - Shortness of breath - Allergy status to narcotic agent status 11/02/2018 14:31 [facility] Jimena ROGERS TYPE: General Medicine DIAGNOSES: - Asthma exacerbation [facility]/11/2018 14[facility] DIAGNOSES: - Asthma - Severe persistent asthma with (acute) exacerbation 04/08/2018 22:[address] [facility] [place] TYPE: Critical Care COMPLAINT: - ASTHMA EXACERBATION DIAGNOSES: - Personal history of other infectious and parasitic diseases - Essential (primary) hypertension - Pneumonia, unspecified organism - Acute frontal sinusitis, unspecified - custodial (current) use of systemic steroids - Other chest pain - Allergy status to narcotic agent status - Other jail (current) drug therapy - Allergy status to other drugs, medicaments and biological substances status - terminal supervisor (current) use of opiate analgesic - terminal supervisor (current) use of aromatase inhibitors - Acute respiratory failure with hypoxia - Anxiety disorder, unspecified - Acute frontal sinusitis, unspecified - custodial (current) use of antibiotics - Prediabetes - Allergy status to sulfonamides status - Prediabetes - Allergy status to narcotic agent status - terminal supervisor (current) use of opiate analgesic - Personal history of nicotine dependence - Other jail (current) drug therapy - Nausea with vomiting, unspecified - custodial (current) use of antibiotics - Pneumonia, unspecified organism - Nausea with vomiting, unspecified - Essential (primary) hypertension - Allergy status to other drugs, medicaments and biological substances status - custodial (current) use of aromatase inhibitors - Allergy status to sulfonamides status - Sedative, hypnotic or anxiolytic dependence, uncomplicated - Personal history of nicotine dependence - Unspecified asthma with (acute) exacerbation - custodial (current) use of systemic steroids - Anxiety disorder, unspecified - Sedative, hypnotic or anxiolytic dependence, uncomplicated - Other chest pain - Personal history of other infectious and parasitic diseases - Acute respiratory failure with hypoxia [email or web address]
[2019-02-14] MEDS ORDERED: FLOMAX0.4 MG PO (20:26)
== END 2019-02-14 21:30 | disposition short-term general hospital (02) ==
LOC: ED 14:15
DX: R06.00 Dyspnea, unspecified (principal); R31.9 Hematuria, unspecified; E11.9 Type 2 diabetes mellitus without complications; J45.909 Unspecified asthma, uncomplicated; Z88.2 Allergy status to sulfonamides; Z88.5 Allergy status to narcotic agent; Z88.8 Allergy status to other drugs, medicaments and biological substances; Z79.52 Long term (current) use of systemic steroids; Z79.4 Long term (current) use of insulin; Z79.899 Other long term (current) drug therapy
CPT/HCPCS: 36415; 36600; 71045; 80053; 81001; 82803; 83880; 85025; 85379; 94640; 94644; 96374; 96375; 96376; 99285-25; J1885; J2060; J2270; J2405; J2550; J2930; J3475

== ENCOUNTER 2019-07-21 13:32 | Inpatient (IN) | payer BC ==
[~2019-07-21] VITALS: Ht 162.6 cm; Wt 86.2 kg
[~2019-07-21 13:32] MED LIST changes: +FLOMAX0.4 MG PO
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
[2019-07-21] MEDS ORDERED: SYMBICORT 16010.2 GM INH (14:33)
[2019-07-21] MEDS ORDERED: DOXYCYCLINE MO100 M1 PO (14:34)
--- NOTE | 2019-07-21 20:00 | NUR ---
PORT SITE APPEARS INFILTRATED, PATIENT REPORTS DICOMFORT. SITE DC BY YESI MOSES. PORT REACCESSED WITH LONGER NEEDLE, 1.25 IN. PATIENT TOLERATED WELL. SITE FLUSHES WELL, DOES NOT RETURN BLOOD. PATIENT STATES THIS IS NORMAL FOR HER PORT. IV ABX INFUSING WITHOUT DISCOMFORT.
--- NOTE | 2019-07-21 20:10 | NUR ---
PORT APPEARS TO BE LEAKING. RASHEED ACCESS DCd. NEW RASHEED PLACED. FLUSHED WELL, NO PAIN WITH FLUSH. NO BLOOD DRAWBACK. PT STATES THAT HER PORT "NEVER GETS BLOOD TO DRAW BACK". RASHEED PLACEMENT, BIOPATCH, GAUZE AND WINDOW DRESSING PERFORMED WITH STERILE PROCEDURE. PT TOLERATED WELL. NO OTHER NEEDS, CALL LIGHT IN REACH.
--- NOTE | 2019-07-21 20:40 | NUR ---
SPOKE TO DR.RASCH DANIELING PATIENT'S REQUEST FOR HOME DOSE OF DIAZEPAM AND DOXEPIN. ORDERS RECEIVED, VERIFIED VIA REPEAT BACK. ALSO DISCUSSED ISSUES WITH PATIENT'S PORT SITE. VERIFIED A PERIPHERAL SITE, INCLUDING A LOWER EXTREMITY SITE.
--- NOTE | 2019-07-21 21:32 | NUR ---
PATIENT REPORTS 7/10 PAIN IN LLQ. PRN MEDS PER ORDER. WARM PACK OFFERED. PATIENT TOLERATING 2L NC. AUDIBLE WHEEZE HEARED. LUNG SOUNDS ARE TIGHT THROUGHOUT WITH EXP WHEEZE IN HEMANT UPPER LOBES. UPPER AIRWAY WHEEZE NOTED. PATIENT HAS DRY HACKING COUGH WITHOUT SPUTUM PRODUCTION. REQUESTING FOOD, WHICH WAS PROVIDED. NO NAUSEA. NO LOOSE STOOLS AT THIS TIME. MOON RECENTLY PLACED, NO ISSUES OR CONCERNS. URINE IS CLEAR YELLOW. VS SATBLE. PATIENT ON BEDREST AT THIS TIME.
--- NOTE | 2019-07-21 21:50 | NUR ---
PATIENT PROVIDED WITH SANDWICH BOX AND SCHEDULED MEDS. PATIENT CONCERNED ABOUT SIDE EFFECTS OF "JUMPING OUT OF MY SKIN" WITH IV SOLU-MEDROL. ASSURED PATIENT WE WOULD ADDRESS ISSUES THEY ARISE AND TO TRY TO ENJOY HER FOOD. PATIENT AGAIN DENIEA NAUSEA, BUT STATES "HOPEFULLY I DON'T THROW ALL THIS UP". INSTRUCTED THE PATIENT TO NOT EAT QUICKLY AND NOT EAT AT ALL IF SHE FELT SHE MIGHT VOMIT. PATIENT STATES "WELL I CAN NEVER TELL, I MIGHT NEED SOMETHING FOR THE NAUSEA". WILL CONTINUE TO MONITOR. PORT SITE APPEARS WNL, ABX FINISHED INFUSING. IV FLUIDS PER ORDER.
--- NOTE | 2019-07-21 22:45 | NUR ---
PATIENT REQUESTING PRN ATIVAN AND PHENERGAN. PATIENT ATE A SANDWICH, GRANOLA BAR, AND MULTIPLE APPLE SAUCES. STATES "I'M NOT SURE IF IT'S NAUSEA, I'VE JUST BEEN PUKEY SICK FOR WEEKS". PROVIDED PRN ZOFRAN AND ATIVAN IN RIGHT FOOT IV. PATIENT'S PORT HAS IV FLUIDS INFUSING, SITE APPEARS WNL. PATIENT COMPLAINS OF BURNING WITH MEDICATION FLUSH, DISCUSSED HESITATION WITH IV PHENERAGN FOR THIS REASON. PATIENT STATES "ONLY THE PHENERGAN WORKS FOR ME". PATIENT DRY HEAVING INTO EMESIS BAG. WASH CLOTH PROVIDED FOR COMFORT.
--- NOTE | 2019-07-21 23:28 | NUR ---
PATIENT REQUESTING PRN PHENERGAN. DISCUSSED OTHER OPTIONS OF MEDICATION A LACK OF IV ACCESS. PATIENT REQUESTING HER PORT BE USED FOR MEDS. AREA APPEARS SWOLLEN AND LINE FLUSHES EASILY. NO BLOOD RETURN. PATIENT DENIES PAIN WITH FLUSH AND REPORTS SWELLING IS "ALWAYS LIKE THAT FOR THE 3 YEARS I'VE HAD IT". REQUEST ASSEMBLER AND TESTER ELECTRONICS ASSESS SITE, CONCLUDES PORT HAS INFLITRATED. PORT DEACCESS BY THIS RN. PATIENT ALLOWS MINE MANAGER TO ASSESS ARMS FOR IV ACCESS. 22G IN RIGHT FOREARM PLACED WITH 1 ATTEMPT. FLUSHES WELL AND RETURNS BLOOD. IV FLUIDS STARTED IN THIS SITE. PRN MORPHINE AND PHENERGAN PROVIDED BY LAKHWINDER MOSES. SLOW PUSHED PER PHARMACY RECOMMENDATIONS. PATIENT CONTINUES TO HAVE A HARSH COUGH WITH AUDIBLE WHEEZES. TOLERATING ROOM AIR AT THIS TIME. VS STABLE.
--- NOTE | 2019-07-22 01:28 | NUR ---
PT CALLS TO ASK FOR COUGH MEDICINE. PRN COUGH MED PROVIDED. PT DRINKS MED THEN WATER AND IMMEDIATELY VOMITS UP CLEAR FLUID. PT ASKS IF THERE IS ANYTHING ELSE AVAILABLE. PT EDUCATED CONCERNING MEDICATIONS AND AVAILABILITY. NO OTHER NEEDS, CALL LIGHT IN REACH.
--- NOTE | 2019-07-22 02:15 | NUR ---
PATIENT CONTINUES TO COUHG. DISCUSSED EMESIS AFTER COUGH MEDICATION PREVIOUSLY. PATIENT REQUESTING MEDICATION AGAIN, SECOND DOSE PROVIDED DUE TO IMMEDIATE VOMITING OF LAST DOSE. PATIENT AGAIN IS UNABLE TO KEEP MEDICATION DOWN AND SPITS UP PART OF THE WATER SHE DRANK WITH THE MEDICATION. PATIENT DENIES FEELING NAUESOUS, STATES "I JUST COMES BACK NATUALLY, I THINK FROM MY THROAT BEING IRRITATED". PATIENT DENIES OTHER NEEDS AT THIS TIME. ENCOURAGED TO REST.
--- NOTE | 2019-07-22 02:45 | NUR ---
PATIENT HAS NOT BEEN ABLE TO SLEEP YET THIS SHIFT. REQUEST ONGOING ANXIETY AND RESTLESSNESS. PRN MEDS PROVIDED PER ORDER. PATIENT TOLERATING ROOM AIR. VS STABLE. URINE OUTPUT QS. IV SITE WNL, FLUIDS PER ORDER.
--- NOTE | 2019-07-22 04:00 | NUR ---
PATIENT NAPPED FOR A SHORT TIME AND IS REQUESTING COFFEE AND TEA WHICH WAS PROVIDED TO HER. EDUCATED PATIENT ON TAKING SMALL SIPS OF CLEAR LIQUIDS TO PREVENT EMESIS. PATIENT DENIES FEELING NAUSEOUS AND REQUEST MENU TO PLAN HER BREAKFAST ORDER. LUNG SOUNDS ARE SLIGHTLY IMPROVED. MORE AIR MOVEMENT THROUGHOUT WITH EXP WHEEZES. PATIENT RECENTLY RECEIVED NEB TREATMENT FROM RT. DENIES FEELING SOB. TOLERATING ROOM AIR. REQUESTING COUGH DROPS. MESSAGE SENT TO MD TO NOTIFY OF NON-URGANT REQUEST. PATIENT DENIES OTHER NEEDS AT THIS TIME.
--- NOTE | 2019-07-22 06:57 | NUR ---
PATIENT PROVIDED WITH SCHEDULED MEDS AND PRN ATIVAN. PATIENT REQUESTING FOOD AND BREAKFAST ORDER RECEIVED. DISCUSSED POSSIBLE NEED TO HOLD FOOD WHILE SHE IS HAVING NAUSEA. PATIENT REPORTS NEED TO HAVE BM, ASSISTED PATIENT UP TO BSC. NO BM. SMALL SMEAR ON DRAW SHEET. LINENS CHANGED AND ATTENDS PROVIDED. PATIENT RETURNED TO BED. VS STABLE. TOLERATES ROOM AIR WITH ACTIVITY.
--- NOTE | 2019-07-22 07:30 | NUR ---
PATIENT SHIFT REPORT RECIEVED FROM TUMBLING MACHINE OPERATOR RN. PATIENT RESTING I NBED AT THIS TIME ON RA. PATIENT SLEPT OFF/ON THROUGH THE NIGHT. WILL CONTINUE TO CLOSELY MONITOR.
--- NOTE | 2019-07-22 08:30 | NUR ---
PATIENT ASSESSMENT COMPLETED. PATIENT RESTING IN BED. PATIENT BREATH SOUNDS ARE CLEAR IN BASES AND EXP WHEEZE NOTED. WHEN PATIENT BREATHS THROUGH HER NOSE PATIENT EXP WHEEZE IS NOT NOTED AND BASES HAVE CLEAR AIR MOVEMENT THROUGHOUT. PATIENT COMPLAINS OF ON GOING CHRONIC ABD PAIN AND STATES "ITS BECAUSE OF MY C.DIFF". PATIENT HAD A SMALL SMEAR THIS AM BUT NO BOWEL MOVEMENTS SINCE ADMISSION. PATIENT HAS OCCASIOANL NAUSEA AND SPITS UP SMALL AMOUNTS OF WATER IMMEDIATELLY AFTER SHE DRINKS IT. PATIENT HAS NOT SPIT UP FOOD OR MEDICATIONS. PATIENT REQUESTS TO GO HOME LATER. MD CHE ALREADY IN TO SEE PATIENT THIS AM AND WILL COME BACK BY LATER FOR POSSIBLE DISCHARGE. NO OTHER NEEDS AT THIS TIME. BREAKFAST ORDERED. WILL COTNINUE TO CLOSELY MONITOR.
--- NOTE | 2019-07-22 08:46 | NUR ---
DR. CHE SPOKE WITH THIS RN WITH ORDERS TO ACCESS, ASSESS, AND HEPARIN LOCK PTS PORT-A-CATH. EDUCATION DONE WITH PT REGARDING PORT A CATH CARE, IMPORTANCE OF HEPARIN LOCK, AND SAFETY WITH PORT PORT IS ACCESSED TO PREVENT NEEDLE DISLOGMENT. PORT ACCESSED PER PROTOCOL. BRISK BLOOD RETURN NOTED. PORT FLUSHED AND HEPARIN LOCKED PER PROTOCOL. PORT DEACCESSED PER PROTOCOL. BANDAID APPLIED. PT VERBALIZES UNDERSTANDING OF EDUCATION. PTS RN UPDATED. DR. CHE UPDATED. PT STATES SHE HAS NO ADDITIONAL REQUESTS OR COMPLAINTS AT THIS TIME. CALL LIGHT WITHIN REACH. BED RAILS UP.
--- NOTE | 2019-07-22 10:30 | NUR ---
PATIENT RESTING IN IN BED. PATIENT HAD FMAILY IN THIS MORNING. PATIENT TALKING ON PHONE RIGHT NOW. LUNCH ORDERED. PATIENT STATES PAIN IS WORSENED IN BELLY AT TIMES AND MORPHIEN ONLY HELPED A LITTLE. UPDATED THAT NO OTHER PAIN MEDICATIONS ARE ORDERED AT THIS TIME. OFFERED TYLENOL PATIENT REFUSED AND STATED "THAT DOESNT HELP ME". OFFERED A WARM PACK AND PATIENT DENIED IT WELL. WILL ENCOURAGE REST AT THIS TIME.
--- NOTE | 2019-07-22 12:25 | NUR ---
PATIENT IN BED EATING LUNCH AT THIS TIME. PATIENT APPEARS TO BE DOING BETTER AT THIS TIME. PATIENT HAS REMAIN ON RA AND SPO2 99%. PATIENT HAS OCCASIOANL AUDIBLE WHEEZE, BUT GOOD AIR MOVEMENT THROUGHT LUNGS AND BASES UPON EXAMINATION. PATIENT STATES "I FEEL MUCH MORE RELAXED AND BETTER RIGHT NOW". PATIENT STATES "WHEN CAN I GO HOME", UPDATED PATIENT NO DISCHARGE ORDERS ARE IN AT THIS TIME AND MD CHE WILL BE BACK OVER TO SEE PATIENT THIS AFTERNOON. WILL CONTINUE TO CLOSELY MONITOR.
--- NOTE | 2019-07-22 12:42 | NUR ---
MED REC COMPLETED. PATIENT HAS NOT FILLED ANY INHALERS OR NEBS SINCE DECEMBER OF 2018 AT HER PREFERRED PHARMACY.
--- NOTE | 2019-07-22 12:52 | NUR ---
AURELIA SANDS REQUESTED I VISIT PT. PT ON O2 NC, COUGHS OFTEN, SOMETIMES PRODUCTIVE. PT FEELS SHE WAS EXPOSED BY HER G.KIDS THAT LIVE WITH HER AND HER BOOKER. I AM CONCERNED THAT PT DOES NOT TAKE THIS SERIOUS ENOUGH. DEBRIEFED, HAD POSITIVE TIME. PT REQUESTED PRAYER, WILL FOLLOW NEEDED
--- NOTE | 2019-07-22 15:30 | NUR ---
IN TO SEE PATIENT. PATIENT IS STILL SOB WITH ANY EXERTION. PATIENT WILL NOT DISCHARGE TODAY, BUT WILL TRANSFER OVER TO [facility] AND STAY OVERNIGHT. PATIENT IS AGREEABLE TO PLAN OF CARE. NO OTHER NEEDS AT THIS TIME. WILL GIVE REPORT TO URBAN MOSES.
--- NOTE | 2019-07-22 15:45 | NUR ---
Patient arrives to unit via hospital bed. Patient has audible expiratory wheezes. Vital signs taken, assessment complete. Lung sounds are dim and coarse throughout, with expiratory wheezing in all quadrants. Bowel tones are active. Patient reports tenderness to the LLQ on palpation. Patient reports pain of 8/10. Ice water refreshed, warm blankets provided. NS running at 125 mls/hr. Patient is oriented to room. Denies further needs, call light within reach.
--- NOTE | 2019-07-22 16:00 | NUR ---
PATIENT TRANSFERED TO ROOM 125 IN THE BED. UPDATES GIVEN TO STAFF. ALL BELONGINGS SENT WITH PATIENT TO THE MEDICAL UNIT. PATIENT TOELRATED WELL. UPDATES GIVEN TO STAFF. RESPIRATORY THERAPY TOOK RESPIRATORY EQUIPMENT TO ROOM 125. NO OTHER NEEDS AT THIS TIME. NO FURTHER QUESTIONS.
--- NOTE | 2019-07-22 16:53 | NUR ---
Patient up to toilet with SBA. Fluids running at 125 mls/hr. Audible expiratory wheezes heard, patient SOB with exertion. Patient returns to bed, call light within reach.
--- NOTE | 2019-07-22 17:19 | NUR ---
Patient laying in bed watching tv. NS running at 250 mls/hr. PM medications given. Patient reports pain of 3/10, prn pain medication given (see MAR). Denies further needs at this time, call light within reach.
--- NOTE | 2019-07-22 18:29 | NUR ---
Patient out of shower and back in bed. NS running at 125 mls/hr. Spot check SpO2 of 98% on RA. Audible expiratory wheezes heard. 100% of dinner eaten. Patient reports nausea, prn antiemetic to be given. Denies further needs, call light within reach.
--- NOTE | 2019-07-22 19:23 | NUR ---
SHIFT REPORT RECIEVED FROM UBRAN MOSES. PT SITTING IN BED, WATCHING TV. PT STATES SHE HAS ANXIETY. PT EDUCATION ON BREATHING TECHNIQUES AND DISTRACTION. NO OTHER NEEDS. CALL LIGHT IN REACH.
--- NOTE | 2019-07-22 19:44 | NUR ---
PT COMPLAINS OF ANXIETY AND PAIN. PRN ANXIETY AND PAIN MED PROVIDED. PT USED APPLESAUCE TO TAKE PILLS. NO VOMIT SO FAR.PT EDUCATED ON MEDICATION PLAN FOR THE EVENING. NO OTHER NEEDS, CALL LIGHT IN REACH.
--- NOTE | 2019-07-22 21:50 | NUR ---
RT AND SENIOR ECOLOGIST IN ROOM. SCHEDULED MEDS PROVIDED. PT ABD PAIN 8/10, PRN PAIN MED PROVIDED. ASSESSMENT COMLPETED. IVs CDI, WNL, FLUSHED WELL. NO OTHER NEEDS. CALL LIGHT IN REACH.
--- NOTE | 2019-07-22 21:56 | NUR ---
VITALS DONE AND CHARTED. FRESH ICE WATER AND HOT TEA GIVEN PER REQUEST OF PT. BEDSIDE TABLE AND CALL LIGHT IN REACH. CLEANED UP ROOM. GARBAGE ALL AROUND. "SOMETHING" SPILLED ALL OVER HER FLOOR AND BEDSIDE TABLE. CLEANED IT UP. BEDSIDE TABLE AND CALL LIGHT IN REACH.
--- NOTE | 2019-07-22 22:28 | NUR ---
CBG RESULTS REQUIRED COVERAGE. MED PROVIDED. NO OTHER NEEDS, CALL LIGHT IN REACH.
--- NOTE | 2019-07-22 23:15 | NUR ---
PT REPORTED TO RESIDENTIAL SALES MANAGER AUGUST THAT SHE HAS STOMACH UPSET. RN TO ROOM, PT SLEEPING. CALL LIGHT IN REACH.
--- NOTE | 2019-07-22 23:30 | NUR ---
PT COMPLAINS OF ANXIETY AND NAUSEA PRN MED PROVIDED. NO OTHER NEEDS, CALL LIGHT IN REACH.
--- NOTE | 2019-07-23 00:40 | NUR ---
PT IV PUMP ALARMING. NEW BAG OF FLUIDS PROVIDED. PT WAKES WHILE RN IN ROOM. NO NEEDS, CALL LIGHT IN REACH.
--- NOTE | 2019-07-23 01:54 | NUR ---
PT CALLED SHE IS HAVING EMESIS. ADMINISTERED PHENERGAN, SHE ALSO REPORTED PAIN BUT DECLINED TYLENOL SHE IS VOMITING AT THIS TIME. PT WOULD LIKE MORPHINE WHEN IT IS AVAILABLE TO TAKE AGAIN. SHE IS COUGHING AND REQUESTED A NEB TRT. CALLED RT, HE WILL COME ADMINISTER TRT. PT DENIES FURTHER NEEDS AND CALL LIGHT IS CLOSE.
--- NOTE | 2019-07-23 04:04 | NUR ---
PT CALLS TO REPORT SHE HAS HAD EMISIS IN HER BED. BEDDING CHANGED. PT REPORTS 8/10 ABD PAIN. PRN PAIN MED PROVIDED. PT ASKS FOR NAUSEA MEDICATION, UNABLE TO PROVIDE DUE TO TIMING. CLEAR SODA AND CRACKERS OFFERED, DECLINED. COOL AND WARM PACKS OFFERED, DECLINED. PT ASKS FOR A BREATHING TX, RT NOTIFIED. ASSESSMENT COMPLETED. COFFEE PROVIDED. NO OTHER NEEDS, CALL LIGHT IN REACH.
--- NOTE | 2019-07-23 05:01 | NUR ---
PT HAS SLEPT ABOUT 3 HOURS THIS SHIFT. SHE HAS HAD PRN MEDS FOR PAIN, NAUSEA AND ANXIETY. LUNGS HAVE BEEN DIMINISHED WITH INSPIRATORY AND EXPIRATORY WHEEZING. PT HAS BEEN HAVING EMESIS ALL NIGHT, EVEN WITH MEDS. SPO2 IN UPPER 90s, RA. PULSE RANGING 80s-105. IVs CDI, WNL, FLUSHED WELL. PORT HEPARIN LOCKED. PAIN HAS BEEN IN LLQ AND CONSTANT, EVEN WITH MEDS. PT TOLERATED IV FLUIDS AND DIET WELL. PT ATE SNACKS AND DRANK COFFEE WITHOUT NAUSEA REPORTED. PT REQUESTED SEVERAL BREATHING TX OVERNIGHT. UO SUFFICINET, VSS.
--- NOTE | 2019-07-23 06:01 | NUR ---
CALL LIGHT ON, PROVIDED TEA. pt REQUESTED "ANY MORNING MED YOU CAN GIVE ME, MAYBE SOMETHING FOR ANXIETY OR ROBITUSSIN COUGH DROP, ANYTHING TO HELP ME REST" PRIMARY RN INFORMED.
--- NOTE | 2019-07-23 06:29 | NUR ---
PT COMPLAINS OF COUGH, ANXIETY, PAIN AND NAUSEA. PRN PAIN MEDS PROVIDED FOR COUGH, ANXIETY, PAIN AND NAUSEA. SCHEDULED MED PROVIDED. NO OTHER NEEDS. CALL LIGHT IN REACH.
--- NOTE | 2019-07-23 08:03 | NUR ---
PT ALERT AND INTERACTIVE AT BEDSIDE REPORT STATES SHE NEEDS MEDS. QUESTIONED PT TO WHICH MEDS SHE FELT SHE NEEDED SHE SAID SHE'D LIKE SOMETHING FOR PAIN, ANXIETY, NAUSEA, OR WHAT EVER SHE CAN HAVE. PT IS AUDIBLY WHEEZING AND USING ACCESSORY MUSCLES, WALKING AROUND ROOM AND TALKING ON THE PHONE. MORPHINE AND NEBULIZER TREATMENT ADMINISTERED. BREATHING MUCH IMPROVED LESS LABORED AND NO LONGER AUDIBLE. BREAKFAST DELIVERED TO PT, SHE STATES SHE WANTS MEDS
--- NOTE | 2019-07-23 08:50 | NUR ---
PT TOLERATES 100% OF BREAKFAST NO C/O. BROUGHT MORNING MEDICATIONS TO THE ROOM PT IMMEDIATELY QUESTIONS WHY THEY ARE PO INSTEAD OF IV, STATES I MUST BE GOING HOME. MEDICATIONS GIVEN WITH SOME PUDDING REQUESTED PT SWALLOW MEDS THEN BEGINS TO GAG AND SPIT UP A BIT, NO EMESIS. SHE GOES ON TO STATES SHE IS NOT READY TO GO HOME. REQUESTS SOMETHING FOR PAIN
--- NOTE | 2019-07-23 09:01 | NUR ---
RETURN TO ROOM PT HAS EMESIS IN A BAG APPROX 200 MLS. PHENERGAN ADMINISTERED, SUGGESTED SHE WAIT ON PO PAIN MEDICATION SHE STATES PHENERGAN WORKS MUCH BETTER THEN TAKES THE PAIN MEDICATION PRIOR TO INTENDED FURTHER DISCUSSION. STATES SHE WANTS TO TALK TO THE DOCTOR ABOUT GOING HOME SINCE SHE HAS EVERYTHING PO NOW. IV LEVAQUIN INFUSING
[2019-07-23] MEDS ORDERED: LEVAQUIN750 MG PO (11:04)
[2019-07-23] MEDS ORDERED: VANCOCIN HCL125 MG PO (11:06)
[2019-07-23] MEDS ORDERED: HYDROCODON-ACE1 EA10 PO (11:08)
[2019-07-23] MEDS ORDERED: PREDNISONE20 MG PO (11:10)
== END 2019-07-23 11:40 | disposition home or self-care (01) | DRG 189 ==
LOC: ED 13:32 → CCU 17:36 → MS 07-22 16:10
PROVIDERS: ADMIT Internal Medicine
DX: J96.00 Acute respiratory failure, unspecified whether with hypoxia or hypercapnia (principal); J44.1 Chronic obstructive pulmonary disease with (acute) exacerbation; R10.30 Lower abdominal pain, unspecified; R19.7 Diarrhea, unspecified; E11.9 Type 2 diabetes mellitus without complications; F41.9 Anxiety disorder, unspecified; Z86.19 Personal history of other infectious and parasitic diseases; Z87.891 Personal history of nicotine dependence; Z88.8 Allergy status to other drugs, medicaments and biological substances; Z79.899 Other long term (current) drug therapy; Z88.5 Allergy status to narcotic agent; Z88.2 Allergy status to sulfonamides; Z79.4 Long term (current) use of insulin; Z79.51 Long term (current) use of inhaled steroids; Z79.52 Long term (current) use of systemic steroids
CPT/HCPCS: 36415; 36600; 71045; 80048; 80053; 82803; 83880; 84484; 85025; 87502; 94640; 94660; 96365; 96375; 96376; 99285-25; J1815; J1956; J2060; J2270; J2405; J2550; J2920; J2930; J3475; J7030; J7040; J7512

== ENCOUNTER 2019-08-08 09:30 | Emergency (ER) | payer BC ==
[~2019-08-08] VITALS: Ht 162.6 cm; Wt 86.4 kg
[~2019-08-08 09:30] MED LIST changes: +DOXYCYCLINE MO100 M1 PO; +HYDROCODON-ACE1 EA10 PO; +LEVAQUIN750 MG PO; +SYMBICORT 16010.2 GM INH; +VANCOCIN HCL125 MG PO
--- OUTSIDE RECORDS SUMMARY | 2019-08-08 09:34 | XMS ---
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 [place] VISIT COUNT (12 MO.) [address] [place] [address] TOTAL 7 NOTE: Visits indicate total known visits. ED/UCC VISIT TRACKING (12 MO.) 08/08/2019 09:31 [facility] TYPE: Emergency COMPLAINT: - SOB, RIGHT LEG PAIN NON INJURY 07/23/2019 07:31 [facility] TYPE: Emergency DIAGNOSES: - Asthma 07/21/2019 13:32 [facility] TYPE: Emergency COMPLAINT: - SOB 02/14/2019 14:16 [facility] TYPE: Emergency COMPLAINT: - BREATHING PROBLEMS DIAGNOSES: - nursing home (current) use of systemic steroids - Allergy status to narcotic agent status - Dyspnea, unspecified - nursing home (current) use of insulin - Allergy status to sulfonamides status - 1 Type 2 diabetes mellitus without complications - Allergy status to oth drug/meds/biol subst status - Other [facility] (current) drug therapy - Unspecified asthma, uncomplicated [...] to oth drug/meds/biol subst status - Other termite inspector (current) drug therapy - Allergy status to sulfonamides status - nursing home (current) use of insulin - Acquired absence of other specified parts of digestive tract - Contact with other hot fluids, initial encounter - 1 Type 2 diabetes mellitus without complications 11/02/2018 10:50 [facility] TYPE: Emergency COMPLAINT: - DIFFICULTY BREATHING DIAGNOSES: - Allergy status to oth drug/meds/biol subst status - Shortness of breath - 1 Type 2 diabetes mellitus without complications - extermination supervisor (current) use of systemic steroids - Allergy status to sulfonamides status - extermination supervisor (current) use of insulin - Other termite inspector (current) drug therapy - Allergy status to narcotic agent status - Personal history of nicotine dependence - Unspecified asthma with (acute) exacerbation INPATIENT VISIT TRACKING (12 MO.) 07/21/2019 17:36 [facility] TYPE: Medical Surgical COMPLAINT: - ACUTE ASTHMA RESPIRATORY FAILURE DIAGNOSES: - Allergy status to sulfonamides status - Allergy status to sulfonamides status - 1 Type 2 diabetes mellitus without complications - Anxiety disorder, unspecified - Personal history of other infectious and parasitic diseases - extermination supervisor (current) use of systemic steroids - Personal history of other infectious and parasitic diseases - Diarrhea, unspecified - Chronic obstructive pulmonary disease w (acute) exacerbation - Acute respiratory failure, unsp w hypoxia or hypercapnia - nursing home (current) use of inhaled steroids - Personal history of nicotine dependence - extermination supervisor (current) use of systemic steroids - Allergy status to narcotic agent status - extermination supervisor (current) use of insulin - Allergy status to oth drug/meds/biol subst status - Lower abdominal pain, unspecified - Personal history of nicotine dependence - Diarrhea, unspecified - nursing home (current) use of insulin - Other [facility] (current) drug therapy - Anxiety disorder, unspecified - 1 Type 2 diabetes mellitus without complications - Acute respiratory failure, unsp w hypoxia or hypercapnia - extermination supervisor (current) use of inhaled steroids - Other termite inspector (current) drug therapy - Allergy status to narcotic agent status - Lower abdominal pain, unspecified - Allergy status to oth drug/meds/biol subst status 02/14/2019 23:05 [facility] [place] TYPE: Medical Surgical COMPLAINT: - ASTHMA EXACERBATION [...] status to oth drug/meds/biol subst status - nursing home (current) use of insulin - Shortness of breath - 1 Type 2 diabetes mellitus without complications - Anxiety disorder, unspecified - 1 Type 2 diabetes mellitus without complications - Severe persistent asthma with (acute) exacerbation - nursing home (current) use of insulin - Sedative, hypnotic or anxiolytic dependence, uncomplicated - Severe persistent asthma with (acute) exacerbation - Other termite inspector (current) drug therapy - Allergy status to narcotic agent status - Allergy status to oth drug/meds/biol subst status - Anxiety disorder, unspecified - Essential (primary) hypertension - Other [facility] (current) drug therapy - Allergy status to sulfonamides status - Essential (primary) hypertension [facility]02[facility]2018 14[facility] DIAGNOSES: - Asthma exacerbation [email or web address]
[2019-08-08] MEDS ORDERED: DIFICID200 MG PO (09:42)
[2019-08-08] MEDS ORDERED: PROMETHAZINE HC25 M1 PO (13:44)
[2019-08-08] MEDS ORDERED: FAMCICLOVIR500 MG PO (13:44)
[2019-08-08] MEDS ORDERED: HYDROMORPHONE HC2 MG PO (13:44)
--- NOTE | 2019-08-08 14:31 | NUR ---
PT REQUESTED MY PRESENCE FOR PRAYER. I AM FAMILIAR WITH HIS PT, AND COULD TELL SHE IS STRUGGLING. WAITING FOR ULTRASOUND RESULTS. PT IS WORRIED OF POSSIBLE B.CLOT, PT SUPPORTED BY FAMILY IN . IN PT'S DISTRESS SHE ALLOWED ME TO PRAY WITH HER. ENCOURAGED TO BE PATIENT AND WAIT FOR RESULTS. MONITOR ALARM SOUNDED-WORKED TO KEEP PT CALM, AURELIA KOENIG CAME QUICKLY AND REASSURED PT WELL. PT AND FAMILY THANKED ME ASKED TO CHECK BACK LATER.
== END 2019-08-08 14:02 | disposition home or self-care (01) ==
LOC: ED 09:30
DX: B02.9 Zoster without complications (principal); J45.909 Unspecified asthma, uncomplicated; E11.9 Type 2 diabetes mellitus without complications; G43.909 Migraine, unspecified, not intractable, without status migrainosus; F17.200 Nicotine dependence, unspecified, uncomplicated; Z88.8 Allergy status to other drugs, medicaments and biological substances; Z88.2 Allergy status to sulfonamides; Z88.5 Allergy status to narcotic agent; Z79.899 Other long term (current) drug therapy; Z79.52 Long term (current) use of systemic steroids
CPT/HCPCS: 71045; 85379; 93971; 94640; 99285-25; 99406; J1170; J1885; J2060; J2405; J2550

== ENCOUNTER 2019-08-10 10:44 | Emergency (ER) | payer BC ==
[~2019-08-10] VITALS: Ht 162.6 cm; Wt 86.4 kg
[~2019-08-10 10:44] MED LIST changes: +DIFICID200 MG PO; +FAMCICLOVIR500 MG PO
--- OUTSIDE RECORDS SUMMARY | 2019-08-10 10:46 | XMS ---
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 Niurka VISIT COUNT (12 MO.) 1 [facility] 7 REAL Gomez TOTAL 8 NOTE: Visits indicate total known visits. ED/UCC VISIT TRACKING (12 MO.) 08/10/2019 10:44 [facility] [place] TYPE: Emergency COMPLAINT: - SOB, NECK/LEG PAIN 08/08/2019 09:31 [facility] [place] TYPE: Emergency COMPLAINT: - SOB, RIGHT LEG PAIN NON INJURY 07/23/2019 07:31 [facility] TYPE: Emergency DIAGNOSES: - Asthma 07/21/2019 13:32 [facility] [place] TYPE: Emergency COMPLAINT: - SOB 02/14/2019 14:16 [facility] TYPE: Emergency COMPLAINT: - BREATHING PROBLEMS DIAGNOSES: - remote computer terminal operator (current) use of systemic steroids - Allergy status to narcotic agent status - Dyspnea, unspecified - remote computer terminal operator (current) use of insulin - Allergy status to sulfonamides status - 1 Type 2 diabetes mellitus without complications - Allergy status to oth drug/meds/biol subst status - Other correction (current) drug therapy - Unspecified asthma, uncomplicated [...] to oth drug/meds/biol subst status - Other meterman (current) drug therapy - Allergy status to sulfonamides status - MCFP (current) use of insulin - Acquired absence of other specified parts of digestive tract - Contact with other hot fluids, initial encounter - 1 Type 2 diabetes mellitus without complications 11/02/2018 10:50 [facility] [place] TYPE: Emergency COMPLAINT: - DIFFICULTY BREATHING DIAGNOSES: - Allergy status to oth drug/meds/biol subst status - Shortness of breath - 1 Type 2 diabetes mellitus without complications - remote computer terminal operator (current) use of systemic steroids - Allergy status to sulfonamides status - MCFP (current) use of insulin - Other meterman (current) drug therapy - Allergy status to narcotic agent status - Personal history of nicotine dependence - Unspecified asthma with (acute) exacerbation INPATIENT VISIT TRACKING (12 MO.) 07/21/2019 17:[address] [facility] [place] TYPE: Medical Surgical COMPLAINT: - ACUTE ASTHMA RESPIRATORY FAILURE DIAGNOSES: - Allergy status to sulfonamides status - Allergy status to sulfonamides status - 1 Type 2 diabetes mellitus without complications - Anxiety disorder, unspecified - Personal history of other infectious and parasitic diseases - remote computer terminal operator (current) use of systemic steroids - Personal history of other infectious and parasitic diseases - Diarrhea, unspecified - Chronic obstructive pulmonary disease w (acute) exacerbation - Acute respiratory failure, unsp w hypoxia or hypercapnia - remote computer terminal operator (current) use of inhaled steroids - Personal history of nicotine dependence - remote computer terminal operator (current) use of systemic steroids - Allergy status to narcotic agent status - MCFP (current) use of insulin - Allergy status to oth drug/meds/biol subst status - Lower abdominal pain, unspecified - Personal history of nicotine dependence - Diarrhea, unspecified - remote computer terminal operator (current) use of insulin - Other meterman (current) drug therapy - Anxiety disorder, unspecified - 1 Type 2 diabetes mellitus without complications - Acute respiratory failure, unsp w hypoxia or hypercapnia - remote computer terminal operator (current) use of inhaled steroids - Other meterman (current) drug therapy - Allergy status to narcotic agent status - Lower abdominal pain, unspecified - Allergy status to oth drug/meds/biol subst status 02/14/2019 23:05 [facility] [place] TYPE: Medical Surgical COMPLAINT: - ASTHMA EXACERBATION [...] analog, init 12. Tobacco use 02/11/2019 14:[address] [facility] [place] TYPE: Medical Surgical COMPLAINT: - SEVERE ASTHMA EXACERBATION DIAGNOSES: - Allergy status to sulfonamides status - Allergy status to narcotic agent status - Allergy status to oth drug/meds/biol subst status - remote computer terminal operator (current) use of insulin - Shortness of breath - 1 Type 2 diabetes mellitus without complications - Anxiety disorder, unspecified - 1 Type 2 diabetes mellitus without complications - Severe persistent asthma with (acute) exacerbation - remote computer terminal operator (current) use of insulin - Sedative, hypnotic or anxiolytic dependence, uncomplicated - Severe persistent asthma with (acute) exacerbation - Other correction (current) drug therapy - Allergy status to narcotic agent status - Allergy status to oth drug/meds/biol subst status - Anxiety disorder, unspecified - Essential (primary) hypertension - Other meterman (current) drug therapy - Allergy status to sulfonamides status - Essential (primary) hypertension 11/02/2018 14:31 [facility] Jimena ROGERS TYPE: General Medicine DIAGNOSES: - Asthma exacerbation [id number]
== END 2019-08-10 12:05 | disposition home or self-care (01) ==
LOC: ED 10:44
DX: B02.9 Zoster without complications (principal); M79.2 Neuralgia and neuritis, unspecified; E11.9 Type 2 diabetes mellitus without complications; J45.909 Unspecified asthma, uncomplicated; G43.909 Migraine, unspecified, not intractable, without status migrainosus; Z88.2 Allergy status to sulfonamides; Z88.8 Allergy status to other drugs, medicaments and biological substances; Z88.5 Allergy status to narcotic agent; Z79.899 Other long term (current) drug therapy; Z79.52 Long term (current) use of systemic steroids; Z79.4 Long term (current) use of insulin
CPT/HCPCS: 96372; 99283-25; J1170; J2550

== ENCOUNTER 2021-02-05 06:01 | Day surgery (SDC) | payer BC ==
[~2021-02-05] VITALS: Ht 162.6 cm; Wt 86.4 kg
--- NOTE | 2021-02-05 09:01 | NUR ---
02/05/21 0901 Tiffany Decker 0847-PATIENT ARRIVED TO PACU AWAKE ON 6L MASK RR EVEN REPORTS "BURNING PAIN" WHEN ASKED TO RATE 9/10. SOFIA DEMARCO ADMINISTERING IV TYLENOL. DRESSING SITES TO RIGHT AND LEFT CHEST CDI. 0854-PATIENT AWAKE PLACED ON RA RR EVEN MEDICATED PER EMAR WITH FENTANYL. 0856-XRAY AT BEDSIDE. HOB ELEVATED RA 100% RR EVEN 0900-PATIENTS HOB ELEVATED RA 100% REPORTING PAIN THE SAME. ASKING FOR PAIN MEDICATION WILL MEDICATE PER EMAR.
[2021-02-05] MEDS ORDERED: IBUPROFEN600 MG PO (09:12)
[2021-02-05] MEDS ORDERED: OXYCODON-ACETA1 EAC2 PO (09:12)
[2021-02-05] MEDS ORDERED: ACETAMINOPHEN500 MG PO (09:12)
--- NOTE | 2021-02-05 10:41 | NUR ---
1020: PT RETURNS TO DAYSURGERY ROOM 4 VIA STRETCHER. AWAKE AND ALERT ON ARRIVAL, ANSWERS QUESTIONS APPROPRIATELY. REPORTS 8/10 PAIN. RECEIVED ORAL PAIN RX AT 1000. VSS, RESP EVEN AND UNLABORED. DENIES NAUSEA. DRESSINGS CLEAN, DRY AND INTACT. IV CONVERTED TO SL. CRACKERS AND ICE WATER PROVIDED. PT AWAITS ARRIVAL OF HER FOR D/C. NO NEEDS VOICED, CALL LIGHT WITHIN REACH
--- NOTE | 2021-02-05 12:21 | NUR ---
1120: PT ALERT AND AWAKE IN ROOM. DRESSED SELF INDEPENDENTLY. REPORTS INCREASING PAIN AND TEARS BP CUFF OFF OF ARM STATING "I CAN'T SIT FOR THIS RIGHT NOW!" APPEARS TO BE FRUSTRATED AND STATES "I AM JUST GOING TO WALK OUT OF HERE" PT CONTS TO AWAIT RIDE AND AWARE OF HOSPITAL POLICY. REPORTS UNDERSTANDING. PAIN RX ADMINISTERED ORDERED. DENIES NAUSEA. NO CHANGE TO DRESSINGS FROM ARRIVAL. DENIES NEEDS AT THIS KARLA CALL LIGHT WITHIN REACH
--- NOTE | 2021-02-05 12:25 | NUR ---
1145: SON ARRIVES ON THE UNIT FOR D/C. D/C INSTRUCTIONS PROVIDED AND DISCUSSED ORDERED, PT VOICES UNDERSTANDING. IV D/C'D WITH CATH TIP INTACT AND PRESSURE APPLIED TO SITE. PT AGREEABLE TO BP AT THIS TIME. WNL. WHEELED OFF OF UNIT BY THIS RN. TRANSFERS INTO VEHICLE INDEPENDENTLY. RESP EVEN AND UNLABORED. NO PHYSICAL S/S OF DISTRESS AT THIS TIME
--- NOTE | 2021-02-05 19:09 | OR ---
[facility] [address], [place] [address] Signed DATE OF OPERATION: 02/05/2021 SURGEON: Renetta Galicia MD PREOPERATIVE DIAGNOSES: 1. 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 2. 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 3. Obesity. POSTOPERATIVE DIAGNOSES: 1. Well-positioned right internal jugular port device, but with thrombosis of catheter and port. No evidence of "flipped" port. PROCEDURES: 1. Exploration of right internal jugular port device with aspiration showing thrombosis. 2. Explantation of right internal jugular Port-A-Cath device. 3. Placement of left subclavian Bard port catheter. 4. Surgeon-directed fluoroscopy. ANESTHESIA: Local with monitored anesthesia care, Edmund Lucia CRNA and local 20 mL of 0.25% Marcaine with epinephrine. INDICATION: This obese 55-year-old white woman is a patient of Dr. Perdomo currently. She underwent placement of a right internal jugular Port-A-Cath device by me on August 04, 2017. She has had episodic severe reactive airways episodes requiring central venous catheterization has very poor peripheral access. I had consulted on her on October 05, 2019 following subcutaneous injection of MRI contrast that had been infused or attempted to be infused through the port device. Failure of infusion was noted. To my knowledge, she has not had thrombolytic therapy. Preoperative chest x-ray was performed under my direction, which shows optimal placement of the port with no sign of transection and the tip of the catheter in the superior vena cava. She has been theorized by her caretakers as having a "flipped" port as access to the port has not been forthcoming. On that basis, we will explore the port site and to assess if it has flipped or is otherwise dysfunctional in any way. She strongly wishes to have another port placed and that may well be needed. The risks of bleeding, infection, failure to insert another port elsewhere, and other unforeseen complications was reviewed in detail with her. She understands and wished to proceed. Electronically Signed By: RENETTA GALICIA MD 02/05/21 1909 PATIENT NAME: STEPHANIE MOODY OPERATIVE REPORT DATE OF : 61 REPORT #: [id number] PHYSICIAN: RENETTA GALICIA MD PCP: SAMIRA PERDOMO MD REPORT IS CONFIDENTIAL AND NOT TO BE RELEASED WITHOUT AUTHORIZATION [facility] [address], [place] [address] Signed FINDINGS: Port was certainly not flipped, it was well positioned and yet had within the port device itself. Access with a Joyce needle did not allow for aspiration of blood, only a harriet colored fluid highly consistent with port thrombosis. Consideration was made for leaving the port as is and doing thrombolytic therapy, however, is considered probable in her case that she would have inadequate result from this and on that basis, it was simply explanted completely. Placement of a left subclavian port device was then undertaken showing good function including withdrawal of blood and infusion of saline. Radiography confirmed a gentle curve to the device and relatively laterally positioned in relation to the clavicle, so as to diminish chances of shearing over time. DESCRIPTION OF PROCEDURE: The patient was brought to the operating room and given monitored anesthesia care with intravenous infusion of propofol and other agents. Preoperative antibiotics Ancef was given. The chest was prepared with a chlorhexidine solution. An implanted nonremovable stud in her skin was isolated with a small OpSite. A 0.25% Marcaine with epinephrine was injected directly over prior right pectoral incision site and incision made with a #15 blade. Dissection was carried through the dermis and subcutaneous tissue with electrocautery. Palpation revealed the port likely to be in good position without having "flipped." Capsule was incised with electrocautery revealing the port, which was well positioned and well secured. A dark brownish appearance was noted through the window of the port device. Access with a Joyce needle and heparinized saline did not allow for withdrawal of blood. A small amount of heparinized saline was infused and withdrawn showing a harriet colored material highly suggestive of port thrombosis. I could not recollect whether or not she is undergone thrombolytic therapy through the port. Mindful that not only the port would be thrombosed with catheter itself and probably proved to be problematic going forward. I thought it would be best to simply remove the port entirely. The port was manipulated out of its fibrous capsule including the catheter itself. The catheter site was showed no sign of retrograde bleeding, but was oversewn with 3-0 Vicryl nevertheless. The port was inspected and indeed found to be thrombosed including most likely the catheter itself. The subcutaneous tissue was closed with interrupted 2-0 Vicryl and skin closed with running subcuticular 3-0 Vicryl. Attention was turned towards the left side. The left infraclavicular space was infiltrated with 0.25% Marcaine with epinephrine. Using a Seldinger technique, the left subclavian vein was accessed showing dark nonpulsatile blood. A flexible J-wire was Electronically Signed By: RENETTA GALICIA MD 02/05/21 7081 PATIENT NAME: STEPHANIE MOODY OPERATIVE REPORT DATE OF : 61 REPORT #: [id number] PHYSICIAN: RENETTA GALICIA MD PCP: SAMIRA PERDOMO MD REPORT IS CONFIDENTIAL AND NOT TO BE RELEASED WITHOUT AUTHORIZATION [facility] [address], [place] [address] Signed passed down the needle and the needle was removed. Fluoroscopy confirmed the position of the wire to be in the right heart system. Some ectopy was noted from time to time confirming position as well. A transverse incision was made over the left pectoralis after infiltration of local anesthesia and a pocket created over the left pectoralis in alignment with previous right-sided incision. A pocket was developed near the pectoralis fascia. A Bard port device was partially secured to the pectoralis fascia with 2-0 Vicryl. The site from which the wire emanated was incised with an #11 blade and the dilator and subsequently dilator and peel-away introducer passed over the wire. The wire and the dilator were removed showing vigorous retrograde bleeding, dark nonpulsatile blood. A previously inspected Groshong-tip catheter was passed down the peel-away introducer and stabilized and the peel-away introducer removed completely. The patient was then returned to a neutral position from the Trendelenburg position. Infusion and aspiration of the catheter showed easy withdrawal of blood and easy infusion of saline. In the neutral position, a small amount of IV contrast was infused and under fluoroscopic control, the catheter tip was withdrawn to the atriocaval junction. A tunneling device was used to pass the catheter from the puncture site to the port site. The catheter was trimmed to the appropriate length and secured with the enclosed collar device per manufacture's instructions securing it well to the port device. The port was then secured to the pectoralis fascia with 2-0 Vicryl suture. Aspiration on the port with an angled Joyce needle showed easy withdrawal of blood and easy infusion of heparinized saline solution. Fluoroscopy was undertaken again this time to assess that there were no kinks at the area of the clavicle or in relation to the port and a good contour was noted. Catheter tip was at the atriocaval junction. The port was additionally secured inferiorly for 3-point fixation with 2-0 Vicryl. Subcutaneous tissue reapproximated with interrupted 2-0 Vicryl and skin closed with running subcuticular of 3-0 Vicryl for the skin. Steri-Strips were applied to the site as well as to the puncture site in the infraclavicular space. Acticoat dressings were applied to each site and an OpSite to the puncture wound in the left infraclavicular space. The patient was allowed to emerge from sedation and taken to the recovery room in good condition having suffered no complication. Sponge, needle, and instrument counts reported as correct x3. A postprocedure chest x-ray was obtained in the recovery room, which confirmed the tip of the catheter in the atriocaval junction. No evidence of complication in any way. Electronically Signed By: RENETTA GALICIA MD 02/05/21 1909 PATIENT NAME: STEPHANIE MOODY OPERATIVE REPORT DATE OF : 61 REPORT #: [id number] PHYSICIAN: RENETTA GALICIA MD PCP: SAMIRA PERDOMO MD REPORT IS CONFIDENTIAL AND NOT TO BE RELEASED WITHOUT AUTHORIZATION [address] [address] Signed Renetta Galicia MD JM/MODL /[id number] cc: Dr. Perdomo Copies: ~ Electronically Signed By: RENETTA GALICIA MD 02/05/21 1909 PATIENT NAME: HEIDYSTEPHANIE OPERATIVE REPORT DATE OF : 61 REPORT #: [id number] PHYSICIAN: RENETTA GALICIA MD PCP: SAMIRA PERDOMO MD REPORT IS CONFIDENTIAL AND NOT TO BE RELEASED WITHOUT AUTHORIZATION
== END 2021-02-05 11:45 | disposition home or self-care (01) ==
LOC: DS 06:01
PROVIDERS: ATTEND Surgery
PROC: 0JH60XZ Insertion of Tunneled Vascular Access Device into Chest Subcutaneous Tissue and Fascia, Open Approach (ICD-10-PCS; 2021-02-05)
PROC: 0JPT0XZ Removal of Tunneled Vascular Access Device from Trunk Subcutaneous Tissue and Fascia, Open Approach (ICD-10-PCS; principal; 2021-02-05 06:45)
DX: T82.868A Thrombosis due to vascular prosthetic devices, implants and grafts, initial encounter (principal); J45.909 Unspecified asthma, uncomplicated; I10 Essential (primary) hypertension; K21.9 Gastro-esophageal reflux disease without esophagitis; E66.9 Obesity, unspecified; Z68.32 Body mass index [BMI] 32.0-32.9, adult; Z79.899 Other long term (current) drug therapy; Z79.1 Long term (current) use of non-steroidal anti-inflammatories (NSAID); Z88.2 Allergy status to sulfonamides; Z90.49 Acquired absence of other specified parts of digestive tract; Y83.8 Other surgical procedures as the cause of abnormal reaction of the patient, or of later complication, without mention of misadventure at the time of the procedure
CPT/HCPCS: 00532; 71045; 77001; A9270; C1788; J0131; J0690; J1170; J1644; J2001; J2405; J2704; J3010; J7121

== ENCOUNTER 2021-04-23 09:08 | Day surgery (SDC) | payer BC ==
[~2021-04-23] VITALS: Ht 162.6 cm; Wt 77.3 kg
[~2021-04-23 09:08] MED LIST changes: +ACETAMINOPHEN500 MG PO; +IBUPROFEN600 MG PO; +OXYCODON-ACETA1 EAC2 PO
--- NOTE | 2021-04-23 09:44 | NUR ---
both nares swabbed for covid-19 without complication. sample taken to lab.
[2021-04-23] MEDS ORDERED: DOXEPIN HCL25 MG PO (10:10)
[2021-04-23] MEDS ORDERED: CYCLOBENZAPRINE10 MG PO (10:10)
--- NOTE | 2021-04-23 12:31 | NUR ---
04/23/21 1231 Yasmine Hunt 1226 PATIENT ARRIVES TO PACU AWAKE OFF/ON. RESP EVEN AND UNLABORED, ROOMAIR SATS >95%. PATIENT DENIES PAIN OR NAUSEA.
[2021-04-23] MEDS ORDERED: IBUPROFEN600 MG PO (12:41)
[2021-04-23] MEDS ORDERED: ACETAMINOPHEN500 MG PO (12:41)
--- NOTE | 2021-04-24 19:51 | EKG ---
[facility] [address] [facility] [place] [address] Signed Normal sinus rhythm Normal ECG When compared with ECG of 17-JUL-2017 17:02, Vent. rate has decreased BY 49 BPM Confirmed by JANAY RICHARD DO ([id number]) on 04/24/2021 7:51:53 PM Electronically Signed By: JANAY RICHARD DO 04/24/211950 PATIENT NAME: STEPHANIE MOODY Electrocardiogram DATE OF : 61 PHYSICIAN: JANAY RICHARD DO REPORT #: [id number] REPORT IS CONFIDENTIAL AND NOT TO BE RELEASED WITHOUT AUTHORIZATION
--- NOTE | 2021-04-27 12:39 | OR ---
[facility] [address] [place], [place] [address] Signed DATE OF OPERATION: 04/23/2021 SURGEON: Renetta Galicia MD PREOPERATIVE DIAGNOSIS: Dysfunctional left subclavian Port-A-Cath device (Bard port catheter). POSTOPERATIVE DIAGNOSIS: Dysfunctional left subclavian Port-A-Cath device (Bard port catheter); flipped port device within fibrous capsule. PROCEDURE: Revision of left subclavian Port-A-Cath device. ANESTHESIA: Local with monitored anesthesia; Arsenio Stringer CRNA and local 10 mL of 0.25% Marcaine with epinephrine. INDICATION: This 55-year-old white woman is a patient of [facility] has need for indwelling central venous catheterization for various medication administration particularly when having reactive airways disease and other problems. She previously had a right internal jugular device, which was replaced a number of weeks ago with a left subclavian Bard port catheter, which had been functioning well. Recently on an episode of flushing of the catheter, it was suspected by the day surgery nurses that the catheter had "flipped." Though not a common occurrence, it is well known and clinical examination by me yesterday showed uncertainty as to that possibility. A SonoSite ultrasound was performed by me, which confirmed a high probability of a "flipped" catheter. Although such catheters can be manipulated within the capsule, doing so in her case was rather uncomfortable. I have recommended revision of the device to secure it (if in fact it is flipped) or otherwise remedy the problem . The risks of bleeding, infection, need for new catheter, and so forth were all reviewed with her, she understands and wished to proceed. FINDINGS: Indeed, the catheter device was flipped upside down. The fibrous capsule that it contained was well formed. The port device easily aspirated blood and infused saline. It was secured to the gakona capsule with multiple interrupted 2-0 PDS sutures and is likely to remain in good functional shape going forward. Electronically Signed By: RENETTA GALICIA MD 04/27/21 1239 PATIENT NAME: STEPHANIE MOODY OPERATIVE REPORT DATE OF : 61 REPORT #: [id number] PHYSICIAN: RENETTA GALICIA MD PCP: SHAKILA PERDOMO MD REPORT IS CONFIDENTIAL AND NOT TO BE RELEASED WITHOUT AUTHORIZATION [facility] [address] [place] [id number] Signed DESCRIPTION OF PROCEDURE: The patient was brought to the operating room, given intravenous sedation by the salmon gillnet vessel operator. Preoperative antibiotic Ancef was given. Sequential compression device stockings were used. Heparin had been administered subcutaneously. After satisfactory intravenous sedation, the upper torso was prepared with a chlorhexidine solution and draped sterilely. A 0.25% Marcaine with epinephrine injected transversely over the previous incision. After palpation of the device, the subcutaneous space was undertaken. An incision was made in former incision extended laterally a bit. Dissection was carried through the subcutaneous tissue with electrocautery. The fibrous capsule was encountered and incised and the port device appeared to be flipped over as suspected clinically by ultrasonographic evaluation yesterday. The fibrous port itself was well secured to the pectoralis itself. The previously placed absorbable sutures were essentially gone. The catheter was reoriented to appropriate position and secured with interrupted 2-0 PDS suture circumferentially around the device deeply securing it to the posterior capsular wall. The port device was accessed with an angled Joyce needle and withdrew blood easily. It was ultimately flushed with heparinized saline per protocol. The wound was then closed with interrupted 2-0 Vicryl and skin closed with running subcuticular 3-0 Vicryl. Steri-Strips were applied as was an Acticoat dressing. She tolerated procedure well. BLOOD LOSS: Minimal. MD RAMIRO [place]/SEBASTIÁN /[id number] cc: Shakila Perdomo MD Copies: Electronically Signed By: RENETTA GALICIA MD 04/27/21 1239 PATIENT NAME: STEPHANIE MOODY OPERATIVE REPORT DATE OF : 61 REPORT #: [id number] PHYSICIAN: RENETTA GALICIA MD PCP: SHAKILA PERDOMO MD REPORT IS CONFIDENTIAL AND NOT TO BE RELEASED WITHOUT AUTHORIZATION [address] [place], [place] [address] Signed ~ Electronically Signed By: RENETTA GALICIA MD 04/27/21 1239 PATIENT NAME: STEPHANIE MOODY OPERATIVE REPORT DATE OF : 61 REPORT #: [id number] PHYSICIAN: RENETTA GALICIA MD PCP: SHAKILA PERDOMO MD REPORT IS CONFIDENTIAL AND NOT TO BE RELEASED WITHOUT AUTHORIZATION
== END 2021-04-23 13:15 | disposition home or self-care (01) ==
LOC: DS 09:08
PROVIDERS: ATTEND Surgery
PROC: 0JWT0XZ Revision of Tunneled Vascular Access Device in Trunk Subcutaneous Tissue and Fascia, Open Approach (ICD-10-PCS; principal; 2021-04-23 10:15)
DX: T82.524A Displacement of infusion catheter, initial encounter (principal); E66.9 Obesity, unspecified; Y83.8 Other surgical procedures as the cause of abnormal reaction of the patient, or of later complication, without mention of misadventure at the time of the procedure; Z20.822 Contact with and (suspected) exposure to COVID-19
CPT/HCPCS: 00532; 93005; 93010; A9270; C9803; J0690; J1644; J2250; J2704; J7121; U0003

== ENCOUNTER 2022-10-21 08:02 | Emergency (ER) | payer OTHER ==
[~2022-10-21] VITALS: Ht 162.6 cm; Wt 77.3 kg
[~2022-10-21 08:02] MED LIST changes: +CYCLOBENZAPRINE10 MG PO
--- OUTSIDE RECORDS SUMMARY | 2022-10-21 08:06 | XMS ---
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 Care History Medical/Surgical 08/11/2019 [facility] -IF PATIENT RETURNS TO ED, PLEASE GIVE HER THE NAME/NUMBER OF HER BCBS PROFESSIONAL SERVICES MANAGER :\Johana\[facility]; EDIS [phone] 08/11/2019 [facility] - PATIENT WAS LAST SEEN BY DR MIRELES ON 07/29/2019. - PATIENT HAS AN APT ON 08/12/[address] JOHNSON. Bah VISIT COUNT (12 MO.) [address] [place] [address] TOTAL 1 NOTE: Visits indicate total known visits. ED/UCC VISIT TRACKING (12 MO.) 10/21/2022 08:03 [facility] [place] TYPE: Emergency COMPLAINT: - CHEST PAIN, DIZZY, SOB INPATIENT VISIT TRACKING (12 MO.) No inpatient visits to display in this time frame [email or web address]
[2022-10-21] MEDS ORDERED: NAPROSYN500 MG PO (12:06)
[2022-10-21 12:30] VITALS: BP 130/85
--- NOTE | 2022-10-22 23:58 | EKG ---
[facility] [address] [facility] [place] [address] Signed Normal sinus rhythm Normal ECG When compared with ECG of 23-APR-2021 11:00, No significant change was found Confirmed by EFREN CHE MD ([id number]) on 10/22/2022 11:58:01 PM Electronically Signed By: EFREN CHE MD 10/22/22 2358 PATIENT NAME: STEPHANIE MOODY Electrocardiogram DATE OF : 61 PHYSICIAN: EFREN CHE MD REPORT #: [id number] REPORT IS CONFIDENTIAL AND NOT TO BE RELEASED WITHOUT AUTHORIZATION
== END 2022-10-21 12:30 | disposition home or self-care (01) ==
LOC: ED 08:02
DX: R07.89 Other chest pain (principal); R09.1 Pleurisy; J45.909 Unspecified asthma, uncomplicated; E11.9 Type 2 diabetes mellitus without complications; Z87.891 Personal history of nicotine dependence; Z88.2 Allergy status to sulfonamides; Z88.5 Allergy status to narcotic agent; Z88.8 Allergy status to other drugs, medicaments and biological substances; Z79.899 Other long term (current) drug therapy
CPT/HCPCS: 36415; 71045; 71260; 80048; 84484; 85025; 85379; 93005; 93010; A9270; J1885; J2060; Q9967

== ENCOUNTER 2024-05-15 11:56 | Emergency (ER) | payer OTHER ==
[~2024-05-15] VITALS: Ht 162.6 cm; Wt 82.1 kg
[~2024-05-15 11:56] MED LIST changes: +CEPHALEXIN500 M1 PO; +NAPROSYN500 MG PO; +PAXLOVID 300-11 EAC1 PO
[2024-05-15] MEDS ORDERED: CLINDAMYCIN HC150 MG PO (12:45)
[2024-05-15] MEDS ORDERED: DOXYCYCLINE HY100 MG PO (12:45)
[2024-05-15 12:50] VITALS: BP 151/83
== END 2024-05-15 12:50 | disposition home or self-care (01) ==
LOC: ED 11:56
DX: T80.212A Local infection due to central venous catheter, initial encounter (principal); L03.313 Cellulitis of chest wall; E11.9 Type 2 diabetes mellitus without complications; J45.909 Unspecified asthma, uncomplicated; G43.909 Migraine, unspecified, not intractable, without status migrainosus; Z87.891 Personal history of nicotine dependence; Z88.2 Allergy status to sulfonamides; Z88.8 Allergy status to other drugs, medicaments and biological substances; Z88.5 Allergy status to narcotic agent; Z79.899 Other long term (current) drug therapy
CPT/HCPCS: 99283

== ENCOUNTER 2024-12-28 13:46 | Inpatient (IN) | payer OTHER ==
[~2024-12-28] VITALS: Ht 162.6 cm; Wt 92.9 kg
[~2024-12-28 13:46] MED LIST changes: +CLINDAMYCIN HC150 MG PO; +DOXYCYCLINE HY100 MG PO
[2024-12-28] MEDS ORDERED: ALBUTEROL/IPRATROPIUM 3 ML NEB ONE ×2 (13:50→14:34)
[2024-12-28] MEDS ORDERED: ALBUTEROL/IPRATROPIUM 3 ML NEB INH ONE ×2 (14:15)
[2024-12-28 14:29] LABS: BASOPHILS 0.5 % (0.1-1.2); EOSINOPHILS 2.9 % (0.7-5.8); LYMPHOCYTES 33.6 % (19.3-51.7); MCH 31.5 PG (25.6-32.2); MCHC 33.1 g/dL (32.2-35.5); MCV 95.3 fL (79.4-94.8); MONOCYTES 7.0 % (4.7-12.5); NEUTROPHILS 55.6 % (34.0-71.1); RBC 4.44 M/uL (3.93-5.22)
[2024-12-28] MEDS ORDERED: LORazepam 2 MG/ML VIAL IV ONE (14:30)
[2024-12-28 14:51] LABS: ALT (SGPT) 28.0 U/L (14-59); AST (SGOT) 11.0 U/L (15-37); GLOMERULAR FILTRATION RATE,EST 107.0 mL/min (>60); PROTEIN, TOTAL 6.3 g/dL (6.4-8.2); UREA NITROGEN 12.0 mg/dL (7-18)
[2024-12-28] MEDS ORDERED: KETAMINE in NS 50 MG/5 ML SYR IV ONE ×2 (15:00→15:45)
[2024-12-28] MEDS ORDERED: ALBUTEROL SULFATE 0.042% 1.25 MG/3 ML VIAL INH ONE (15:15)
[2024-12-28] MEDS ORDERED: ALBUTEROL SULFATE 0.5% 2.5 MG/0.5 ML VIAL INH ONE (15:15)
[2024-12-28] MEDS ORDERED: MAGNESIUM SULFATE 2 GM/50 ML BAG IV ONE (15:30)
[2024-12-28] MEDS ORDERED: BUDESONIDE 0.5 MG/2 ML VIAL INH ONE (16:15)
[2024-12-28] MEDS ORDERED: ENOXAPARIN SODIUM 40 MG/0.4 ML SYR SUB-Q SCH (16:37)
[2024-12-28] MEDS ORDERED: LORazepam 1 MG TAB PO PRN (16:45)
[2024-12-28] MEDS ORDERED: LACTATED RINGER'S 1,000 ML IV SCH (16:45)
[2024-12-28] MEDS ORDERED: POTASSIUM BICARBONATE/CIT AC 20 MEQ TABEF PO ONE (16:45)
[2024-12-28] MEDS ORDERED: ACETAMINOPHEN 325 MG TAB PO PRN (16:45)
[2024-12-28] MEDS ORDERED: POTASSIUM CHLORIDE 40 MEQ,LIDOCAINE HCL 1% 40 MG in DEXTROSE 5% 250 ML IV ONE (16:45)
[2024-12-28] MEDS ORDERED: LOSARTAN-HCTZ1 EAC1 PO (17:04)
[2024-12-28] MEDS ORDERED: VENTOLIN HFA18 GM INH (17:06)
[2024-12-28] MEDS ORDERED: ALBUTEROL SULFATE 0.083% 3 ML VIAL INH PRN (17:45)
[2024-12-28 18:28] VITALS: BP 108/95
[2024-12-28] MEDS ORDERED: KETAMINE in NS 50 MG/5 ML SYR IV PRN (18:30)
--- NOTE | 2024-12-28 18:52 | NUR ---
PATIENT ADMITTED TO ROOM 127 FOR ASTHMA EXACERBATION AROUND 1800. PT REPORTS DEALING WITH THIS EXACERBATION FOR THE LAST 3 WEEKS, AND COMPLETED A 10 DAY COURSE OF STEROIDS AND 5 DAYS OF PO ABX. PT REPORTS FEELING WORSE TODAY WITH INCREASED COUGH AND SHORTNESS OF BREATH AND CAME TO ER. PT VERY WHEEZY UPON ADMISSION, AND ON BIPAP AT 12/5, 40%. PT HAS REC'D MULTIPLE NEBS IN ER. PT TAKEN TO CT PRIOR TO COMING TO CCU AND WAS ABLE TO STAND, PIVOT, AND GET ONTO CT TABLE, BACK TO CCU BED, THEN ABLE TO AMBULATE INTO BATHROOM IN CCU TO VOID, ONLY 25 ML. PT NOW RESTING IN BED. PRN OPTIONS FOR ANXIETY RELIEF DISCUSSED WITH PATIENT. PT ON REG DIET AND TOLERATING CLEAR LIQUIDS SO FAR. IV POTASSIUM INFUSING INTO LEFT PORT A CATH WHICH FLUSHES WELL AND ASPIRATES BLOOD EASILY. IVF STARTED AT 100 ML/HR. PT HAS CALL L IGHT WITHIN REACH. PT ASKING WHEN SHE CAN HAVE HER NEXT NEB TX. RT GAVE HER A NEB WHEN SHE PRESENTED TO CCU ROOM.
[2024-12-28 19:30] VITALS: BP 106/59
[2024-12-28 19:39] LABS: INFLUENZA B NAA NEGATIVE (NEGATIVE); RESPIRATORY SYNCYTIAL VIR NAA NEGATIVE (NEGATIVE)
[2024-12-28] MEDS ORDERED: BUDESONIDE 0.5 MG/2 ML VIAL INH SCH (20:00)
[2024-12-28] MEDS ORDERED: ALBUTEROL/IPRATROPIUM 3 ML NEB INH SCH (20:00)
[2024-12-28 20:15] VITALS: BP 116/90
--- NOTE | 2024-12-28 20:25 | EKG ---
[facility] [address] [place], [place] [address] Signed Sinus tachycardia Low voltage QRS Borderline ECG No previous ECGs available Confirmed by Rob Benson DO ([id number]) on 12/28/2024 8:25:14 PM Electronically Signed By: ROB BENSON DO 12/28/242024 PATIENT NAME: HEIDYSTEPHANIE GALLO Electrocardiogram DATE OF : 61 PHYSICIAN: ROB BENSON DO REPORT #: [id number] REPORT IS CONFIDENTIAL AND NOT TO BE RELEASED WITHOUT AUTHORIZATION
[2024-12-28] MEDS ORDERED: GLUCAGON,HUMAN RECOMBINANT 1 MG/ML VIAL SUB-Q PRN (20:30)
[2024-12-28] MEDS ORDERED: DEXTROSE 50% 50 ML SYR IV PRN ×2 (20:30)
[2024-12-28] MEDS ORDERED: IBLOOD GLUCOSE TEST STRIP 1 EA TEST XX PRN (20:30)
[2024-12-28] MEDS ORDERED: DEXTROSE 5% 1,000 ML IV PRN (20:30)
[2024-12-28 20:35] VITALS: BP 111/76
--- NOTE | 2024-12-28 20:35 | NUR ---
PATIENT ASSESSMENT COMPLETE. PATIENT LAYING AWAKE IN BED WATCHING TV. PATIENT BOOKER AT BEDSIDE. PATIENT LEFT CHEST PORT SITE WNL. IVF AND POTASSIUM INFUSING PER EMAR. PATIENT ON ROOM AIR, TOLERATING WELL. PATIENT STATES SHE FEELS SOB. EXP WHEEZES HEARD THROUGHOUT ALL LUNG J[place]O. PATIENT HAS OCCASIONAL NON PRODUCTIVE COUGH. PATIENT UPDATED ON PLAN OF CARE FOR THE NIGHT. PATIENT PLANS TO GO BACK ON BIPAP BEFORE BED. CALL LIGHT IN REACH.
[2024-12-28 21:00] VITALS: BP 105/81
[2024-12-28] MEDS ORDERED: IBLOOD GLUCOSE TEST STRIP 1 EA TEST VI SCH (21:00)
[2024-12-28] MEDS ORDERED: MELATONIN 3 MG TAB PO PRN (21:00)
[2024-12-28] MEDS ORDERED: INSULIN LISPRO 100 UNIT/ML ML SUB-Q SCH (21:00)
--- NOTE | 2024-12-28 21:00 | NUR ---
PATIENT PROVIDED WITH SANDWICH BOX PER REQUEST. BOOKER AT BEDSIDE. PATIENT UPDATED ON PLAN OF CARE FOR THE NIGHT. PATIENT HAS NO FURTHER NEEDS AT THIS TIME. CALL LIGHT IN REACH.
--- NOTE | 2024-12-28 21:15 | NUR ---
DR BENSON CALLED TO DISCUSS PLAN OF CARE. NEW ORDER RECEIVED PER EMAR - VERIFIED VIA REPEAT BACK METHOD.
[2024-12-28] MEDS ORDERED: LORazepam 2 MG/ML VIAL IV PRN (21:45)
[2024-12-28 22:40] VITALS: BP 149/73
--- NOTE | 2024-12-28 22:50 | NUR ---
patient placed on BIPAP. lights dimmed per request. patient has no further needs at this time. patient has call light in reach.
[2024-12-29] VITALS (21 sets, daily range): BP systolic 93–194; BP diastolic 50–159
--- NOTE | 2024-12-29 01:37 | NUR ---
patient resting with eyes closed, RR 20. no acute distress noted. patient tolerating BIPAP well, SPO2 96%. patient has no needs at this time. call light in reach.
--- NOTE | 2024-12-29 03:22 | NUR ---
patient awake, and request a break from BIPAP. BIPAP taken off. patient up to bathroom to void, steady on feet. patient back to bed. patient begins to have anxiety attack. PRN ativan given per emar. RT called for Neb treatment. patient calms. patient able to cough up small amount of sputum after using cornet. lights dimmed per request. patient remains on room air, SPO2 94%. patient has no further needs at this time. call light in reach.
[2024-12-29 05:20] LABS: BASOPHILS 0.1 % (0.1-1.2); EOSINOPHILS 0 % (0.7-5.8); LYMPHOCYTES 5.1 % (19.3-51.7); MCH 31.6 PG (25.6-32.2); MCHC 33.3 g/dL (32.2-35.5); MCV 94.7 fL (79.4-94.8); MONOCYTES 1.6 % (4.7-12.5); NEUTROPHILS 92.8 % (34.0-71.1); RBC 4.31 M/uL (3.93-5.22)
[2024-12-29 05:35] LABS: ALT (SGPT) 32.0 U/L (14-59); AST (SGOT) 10.0 U/L (15-37); GLOMERULAR FILTRATION RATE,EST 63.0 mL/min (>60); PROTEIN, TOTAL 6.7 g/dL (6.4-8.2); UREA NITROGEN 26.0 mg/dL (7-18)
--- NOTE | 2024-12-29 05:40 | NUR ---
patient up to bathroom to void and brush teethe. patient back to bed. PRN Neb treatment provided per patient request. patient has no further needs at this time. call light in reach.
--- NOTE | 2024-12-29 06:05 | NUR ---
patient noted to be anxious and restless in bed. PRN ativan given per emar. patient placed back on BIPAP, settings unchanged. no further needs at this time. call light in reach.
--- NOTE | 2024-12-29 07:15 | NUR ---
patient up to bathroom to void and have a BM. patient heart rate noted to get up to 120's. patient back to bed. patient on room air, SPO2 98%. patient continues to have harsh non productive cough and SOB. call light in reach.
--- NOTE | 2024-12-29 07:45 | NUR ---
PT RESTING IN BED, RT AT BEDSIDE GIVING BREATHING TREATMENT. PT REPORTS GETTING GOOD SLEEP LAST NIGHT, FEELING A LITTLE BETTER TODAY. PT APPEARS TO BE IN NO RESPIRATORY DISTRESS, SLIGHTLY ANXIOUS. PT REQUESTING ANXIETY MEDICATION, GIVEN PER EMAR ORDER. BREAKFAST DELIVERED AND FRESH WATER PROVIDED. DENIES FURTHER NEEDS, CALL LIGHT IN REACH
--- NOTE | 2024-12-29 08:45 | NUR ---
INTO ROOM FOR MEDICATION ADMINISTRATION. PROVIDED PT WITH TEA PER REQUEST. DR BENSON AT BEDSIDE FOR ROUNDING, DISCUSSING PLAN OF CARE WITH PT. NEW ORDERS RECEIVED.
[2024-12-29] MEDS ORDERED: BENZONATATE 100 MG CAP PO PRN (09:00)
[2024-12-29] MEDS ORDERED: guaiFENesin 600 MG TABCR PO SCH (09:01)
--- NOTE | 2024-12-29 09:15 | NUR ---
DR BENSON WISHES TO TRY PRN KETAMINE DUE TO PT REQUEST AND REPORTING THAT SHE DOES NOT FEEL THOUGH SHE IS HAVING MUCH AIR FLOW. OXYGEN REMAINS 97% ON ROOM AIR, TACHYPNEIC, BUT NO DISTRESS. RT CALLED TO ROOM FOR KETAMINE ADMIN. PT TOLERATED WELL, OXYGEN REMAINED OVER 90%. PT REPORTS HAVING BETTER AND COMPLETE BREATHS. RT PLACED PT ON NEBULIZER TREATMENT AND BIPAP PER PT REQUEST. PT REPORTS MUCH IMPROVEMENT IN WORK OF BREATHING, APPEARS TO BE MORE COMFORTABLE.
--- NOTE | 2024-12-29 10:15 | NUR ---
PT RESTING IN BED, BIPAP TAKEN OFF. PT TALKING ON PHONE TO FAMILY MEMBER, NO DISTRESS NOTED. DENIES NEEDS, CALL LIGHT IN REACH
--- NOTE | 2024-12-29 10:45 | NUR ---
PT RESTING IN BED, WATCHING TV. REMAINS ON BIPAP PER PT REQUEST, TOLERATING WELL. PT REPORTS FEELING MORE SHOB, RT CONTACTED FOR NEB TREATMENT. NO DISTRESS NOTED, COUGHING OCCASIONALLY, UNPRODUCTIVE
--- NOTE | 2024-12-29 10:52 | NUR ---
UR CLINICAL REVIEW: ABY, MEETS INPT FOR ASTHMA REQUIRING BIPAP, IV FLUIDS, ACCESSORY MUSCLE USE WITH RESPIRATIONS RESP ACIDOSIS AND TACHYCARDIC 111-150 [facility] INPT 12/28/2024 @ 1638 ORDER MATCHES REG AUTH PENDING, WILL SEND CLINICALS VIA RIGHTFAX PLAN TO DC TO HOME WHEN MEDICALLY READY 01/03/2025
--- NOTE | 2024-12-29 11:01 | NUR ---
INTO SEE PATIENT. PERSONAL HEALTH INFORMATION REVIEWED. PATIENT LIVES IN A HOUSE WITH HER DAUGHTERS. PATIENT DOES NOT HAVE ANY DME. SHE DOES HAVE AN OXYGEN CANISTER BOUGHT OFF OF [employer] FOR WHEN SHE IS HIKING. PATIENT KENNA DRIVES. DENIES ANY DIFFCULTY PAYING UTILTIES OR OBTAINING FOOD. PATIENT TO GET A RIDE FROM FAMILY ONCE MEDICALLY CLEARED FOR DISCHARGE. NO FUTHER CM NEEDS AT THIS TIME.
--- NOTE | 2024-12-29 11:08 | NUR ---
FAMILY HERE TO VISIT WITH PT AT THIS TIME, PT REMOVED FROM BIPAP AT THIS TIME AND WANT'S TO TRY ROOM AIR AT THIS TIME. SPO2 98% ON ROOM AIR AT THIS TIME.
--- NOTE | 2024-12-29 11:20 | NUR ---
PT REPORTS FEELING ANXIOUS, RT AT BEDSIDE DOING BREATHING TREATMENT. PRN ANXIETY MEDICATION GIVEN PER ORDER. NO DISTRESS NOTED, PT TOLERATING WELL ON ROOM AIR. EXPIRATORY WHEEZE AUDIBLE. FAMILY AT BEDSIDE
[2024-12-29] MEDS ORDERED: ALBUTEROL/IPRATROPIUM 3 ML NEB INH SCH (12:00)
[2024-12-29] MEDS ORDERED: PHARMACY RENAL DOSE ADJUSTMENT 1 DOSE MISC PO SCH (12:00)
[2024-12-29] MEDS ORDERED: LOSARTAN POTASSIUM 100 MG TAB PO SCH (12:03)
[2024-12-29] MEDS ORDERED: AMLODIPINE BESYLATE 10 MG TAB PO SCH (12:15)
--- NOTE | 2024-12-29 12:30 | NUR ---
PT REPORTS HEADACHE, 6/10 FROM COUGHING. PRN TYLENOL GIVEN. ALSO GAVE PT HOME MEDICATIONS PER ORDER. PT REQUESTING TO USE BATHROOM, AMBULATED, SBA, STEADY ON FEET. AFTER GETTING BACK TO BED, PT REPORTS FEELING SHOB, OXYGEN 98% ON RROM AIR. PT WANTING TO USE BIPAP, ASSISTED PT WITH PUTTING BACK ON. RT CALLED FOR NEBULIZER TREATMENT. PT TOLERATING BIPAP WELL
[2024-12-29] MEDS ORDERED: BUDESONIDE-FO10.2 G1 INH (12:32)
[2024-12-29] MEDS ORDERED: ALBUTEROL2.5 MG/3 M INH (12:33)
--- NOTE | 2024-12-29 12:34 | NUR ---
MED REC COMPLETE
[2024-12-29] MEDS ORDERED: LOSARTAN POTASSIUM 50 MG TAB PO SCH (13:00)
--- NOTE | 2024-12-29 13:20 | NUR ---
PT RESTING IN BED, FAMILY AT BEDSIDE. PT HAS BIPAP ON FOR COMFORT AND ONGOING SHOB. NO DISTRESS NOTED, REMAINS 97%. COUGHING OCCASIONALLY, NON-PRODUCTIVE AT THIS TIME. FAMILY AT BEDSIDE, CALL LIGHT IN REACH
[2024-12-29] MEDS ORDERED: ALBUTEROL SULFATE 0.5% 2.5 MG/0.5 ML VIAL INH ONE (14:15)
--- NOTE | 2024-12-29 14:25 | NUR ---
PT REPORTS SHOB REMAINS, WORK OF BREATHING INCREASING. PT REPORTS SOME ANXIETY. RT TO GIVE ALBUTEROL TX AND SOLUMEDROL DOSE DUE, WHICH PT REPORTS MAKES ANXIETY WORSE. DR HULL CALLED REGARDING PRN KETAMINE DOSE ON EMAR DUE TO NOT HAVING PRN ADMIN TIMES. RT AND THIS RN BELIEVES PT WOULD BENEFIT FROM ADDITIONAL KETAMINE DOSE TO IMPROVE WORK OF BREATHING. NEW ORDER RECEIVED FROM DR HULL.
[2024-12-29] MEDS ORDERED: [UNRECOGNIZED DRUG - OTHER] TD SCH (14:45)
[2024-12-29] MEDS ORDERED: KETAMINE in NS 50 MG/5 ML SYR IV ONE (14:45)
--- NOTE | 2024-12-29 15:10 | NUR ---
PT RESTING IN BED, WORK OF BREATHING SEEMS TO HAVE IMPROVED. LUNG SOUNDS CONTINUE TO BE TIGHT WITH EXP WHEEZES. PT REMAINS ON BIPAP, 99%
--- NOTE | 2024-12-29 15:56 | NUR ---
PHONE CALL TO AND NEW ORDERS RECEIVED AT THIS TIME.
--- NOTE | 2024-12-29 15:57 | NUR ---
PT HAS BEEN ON AND OFF BIPAP THROUGHT THE SHIFT SO FAR. AT THIS TIME CURRENTLY OFF AND SPO2 98%. RT AND THIS MATERIAL PROCESSOR TALKED WITH REGARDING PT CARE AND TREATMENT.
[2024-12-29] MEDS ORDERED: KETAMINE in NS 50 MG/5 ML SYR IV PRN (16:00)
--- NOTE | 2024-12-29 17:07 | NUR ---
PT BP DECREASED PER DR ORDERS AT BEDSIDE REMOVED CATPRESS PATCH FROM LT SHOULDER.
--- NOTE | 2024-12-29 17:13 | NUR ---
INTO ROOM WITH DR HULL FOR ROUNDING. DISCUSSED PLAN OF CARE AND ALL QUESTIONS ANSWERED
--- NOTE | 2024-12-29 17:49 | NUR ---
PT ASSISTED TO BEDSIDE COMMODE VIA SBA. PT TACHYPNEIC, REPORTS FEELING SHOB. ASSISTED BACK TO [facility]. PT REQUESTING PRN ATIVAN. RESPIRATIONS DOWN TO 20-22 WITH REST IN BED. PT ALSO REPORTS HEADACHE 6/10 AND NAUSEA AT THIS TIME.
--- NOTE | 2024-12-29 18:16 | NUR ---
RT AT BEDSIDE FOR BREATHING TREATMENT PER PT REQUEST
--- NOTE | 2024-12-29 20:08 | NUR ---
STEPHANIE IS ON A VAPOTHERM HFNC 20L, FIO2 21%. SHE IS [employer]. STEPHANIE IS ABLE TO USE THE CORNET LEVEL 5 W/O INCREASED S/S OF RESPIRATORY DISTRESS. PRIOR TO DISCHARGE, STEPHANIE WILL NEED A PRESCRIPTION FOR NEBULIZED: DUONEB QID, PULMICORT BID, AND XOPENEX Q1PRN. STEPHANIE DOES HAVE A HOME NEBULIZER ALREADY.
--- NOTE | 2024-12-29 20:15 | NUR ---
ASSUMPTION OF CARE Upon initial assessment, pt visiting with family at bedside. SOB/labored breathing observed. RR 20's. SpO2 97%. Pt on vapotherm 20L/21% FiO2. Pt has a dry, harsh, nonproductive cough, on tessalon, mucinex, nebs, steroids. Lung sounds tight/wheeze, bronchial tightness/wheezing auscultated as well. RT at bedside setting up scheduled neb at this time. Pt reporting nausea, received Zofran around 1800. This RN d/w Dr. Overton, recommendation to give PRN ativan. Comfort measures provided to pt for anxiety and nausea.
--- NOTE | 2024-12-29 21:46 | NUR ---
UPDATE: Pt taking break from BIPAP, eating a snack. On RA, denies SOB. SpO2 96%
[2024-12-30] VITALS (17 sets, daily range): BP systolic 94–157; BP diastolic 52–102
--- NOTE | 2024-12-30 01:16 | NUR ---
UPDATE: Pt feeling anxious, insists on going outside for fresh air and to "move around" per pt. Refusing Ativan at this time. This RN agreed to take pt outside in wheelchair, pt agreeable to this. No acute events. Upon return to unit, pt back to bed, on BIPAP. Pt verbalizing anxiety and states she feels "cooped up." Now agreeable to PRN Ativan, which was given. Pt now resting comfortably in bed. Needs met. Call light in reach. Bed alarm in use d/t pt noncompliant with call light, getting up out of bed unsafely. Pt is vitally stable. No s/s acute distress at this time.
--- NOTE | 2024-12-30 02:12 | NUR ---
UPDATE: Pt is very anxious and restless, requesting ketamine and solumedrol to be given together to avoid further exacerbation of anxiety symptoms. D/t dosing times (ketamine ordered TID PRN), ativan given now for anxiety. Will give ketamine and solumedrol at 0300.
--- NOTE | 2024-12-30 02:16 | NUR ---
STEPHANIE IS CURRENTLY ON A VAPOTHERM 15L, FIO2 21%. RT DECREASED THE FLOW FROM 20L TO 15L FOR PATIENT COMFORT.
--- NOTE | 2024-12-30 03:07 | NUR ---
PATIENT PROVIDED SCHEDULED MEDS PER ORDER. PATIENT IS IN BED USING HER PHONE. PATIENT APPEARS RESTLESS. ENCOURAGED PATIENT TO REST HER EYES AND TURN OFF HER PHONE AT THIS TIME. PATIENT AGREES. PATIENT PLACED ON BIPAP. LIGHTS DIMMED. CALL LIGHT IN REACH.
[2024-12-30 05:31] LABS: BASOPHILS 0.1 % (0.1-1.2); EOSINOPHILS 0 % (0.7-5.8); LYMPHOCYTES 4.6 % (19.3-51.7); MCH 31.3 PG (25.6-32.2); MCHC 33.1 g/dL (32.2-35.5); MCV 94.7 fL (79.4-94.8); MONOCYTES 3.4 % (4.7-12.5); NEUTROPHILS 90.8 % (34.0-71.1); RBC 4.12 M/uL (3.93-5.22)
[2024-12-30 05:47] LABS: ALT (SGPT) 30.0 U/L (14-59); AST (SGOT) 8.0 U/L (15-37); GLOMERULAR FILTRATION RATE,EST 92.0 mL/min (>60); PROTEIN, TOTAL 6.3 g/dL (6.4-8.2); UREA NITROGEN 24.0 mg/dL (7-18)
--- NOTE | 2024-12-30 08:30 | NUR ---
PT SBA TO BATHROOM AND BACK TO BED. PT REQUESTED TO SPEAK TO PROVIDER ABOUT KETAMINE DOSAGES. PROVIDER MADE AWARE.
--- NOTE | 2024-12-30 08:59 | NUR ---
DR HULL AT BEDSIDE DISCUSSING PLAN OF CARE WITH PT.
[2024-12-30] MEDS ORDERED: hydroCHLOROthiazide 25 MG TAB PO SCH (09:00)
[2024-12-30] MEDS ORDERED: TRAMADOL HCL 50 MG TAB PO PRN (09:15)
--- NOTE | 2024-12-30 09:17 | NUR ---
INTO SEE PATIENT. PATIENT ON VAPOTHERM RESTING IN BED. PATIENT STILL TO GO HOME WITH FAMILY WHEN MEDICALLY CLEARED. NO QUESTIONS AT THIS TIME.
--- NOTE | 2024-12-30 09:26 | NUR ---
PT RESTING IN BED, CALL LIGHT WITHIN REACH. PT EATING BREAKFAST, FAMILY AT BEDSIDE.
--- NOTE | 2024-12-30 11:00 | NUR ---
BEDBATH COMPLETED WITH ASSISTANCE FROM RN. PT LINEN CHANGED WELL FRESH CLOTHING.
--- NOTE | 2024-12-30 11:50 | NUR ---
PT NOT AVAILABLE FOR VISIT. PROVIDED PRAYER.
--- NOTE | 2024-12-30 11:56 | NUR ---
PT COMPLAINT OF HEADACHE 12/08. PT OFFERED TYLENOL. PT DECLINED STATING THE DR WAS GOING TO ORDER SOMETHING STRONGER. PT INFORMED PT DR HAD ORDERED TRAMADOL AND IT WAS GIVEN TO PT ONE HOUR PRIOR AND THAT THE ONLY OPTION IS TYLENOL. PT STATED SHE WILL JUST TAKE ANOTHER DOSE OF THE TRAMADOL. PT INFORMED SHE CANNNOT HAVE ANOTHER DOSE FOR FIVE HOURS AND THE ONLY AVAILABLE MEDICATION FOR HER HEADACHE IS TYLENOL. PT DECLINED, STATING IT DOESNT WORK FOR HER.
--- NOTE | 2024-12-30 12:17 | NUR ---
CARE TAKEN OVER FROM KIM MOSES AT THIS TIME. ASSESSMENT COMPLETED AT THIS TIME. PT COMPLAINING OF A HEADACHE 12/08 THAT SHE STATES SHE HAS HAD FOR TWO WEEKS. PT GIVEN TYLENOL PRIOR TO TAKING OVER CARE.
[2024-12-30] MEDS ORDERED: LORazepam 2 MG/ML VIAL IV PRN (12:30)
--- NOTE | 2024-12-30 12:35 | NUR ---
PT COMPLAINING OF ANXIETY AT THIS TIME. REQUESTING ATIVAN AT THIS TIME. GAVE 2MG ATIVAN IV AT THIS TIME.
--- NOTE | 2024-12-30 13:24 | NUR ---
MD IN ROOM WITH PATIENT PER PATIENT REQUEST.
[2024-12-30] MEDS ORDERED: GUAIFENESIN/CODEINE 5 ML UDC PO PRN (13:45)
--- NOTE | 2024-12-30 14:04 | NUR ---
pt up to bathroom and back to bed. pt short of breath with excertion. pt requesting something more for her heahache and cough. gave cough syrup at this time. pt remains anxious and aggitated. pt refusing to take steroids at this time.
--- NOTE | 2024-12-30 14:15 | NUR ---
pt remains aggitated and amxious at this time. pt not calling for assistance when trying to get up in room. asked patient to call for help if needs to get up. call light within reach.
--- NOTE | 2024-12-30 14:37 | NUR ---
SAT AT PATIENTS BEDSIDE AND LISTENED TO PATIENTS CONCERNS REGARDING IV STEROIDS. PT CONTINUES TO REFUSE THEM AT THIS TIME. PT REMAINS ANXIOUS AND AGGITATED.
--- NOTE | 2024-12-30 16:11 | NUR ---
PT PACING IN THE ROOM. PT REQUESTING TO GO FOR A WALK. TOOK PATIENT OUT OF ROOM IN A WHEELCHAIR FOR A CHANGE SCENORY. PT REMAINS AGGITATED AND ANXIOUS. PT REQUESTED TO BE TAKEN TO HER CAR WHILE OUT ON A WALK. THIS RN REFUSED TO DO THIS AT THIS TIME. PT NOW BACK IN ROOM SITTING ON EDGE OF BED.
--- NOTE | 2024-12-30 16:23 | NUR ---
GAVE PATIENT 2MG ATIVAN IV AT THIS TIME FOR AGGITATION.
--- NOTE | 2024-12-30 16:45 | NUR ---
PT CONTINUES TO ASK FOR MORE MEDICATION FOR A HEADACHE. OFFERED TYLENOL BUT PT REFUSED.
--- NOTE | 2024-12-30 18:00 | NUR ---
PT REQUESTING COUGH SYRUP. GAVE COUGH SYRUP AT THIS TIME. PT CONTINUES TO REMAIN ANXIOUS AND AGGITATED.
--- NOTE | 2024-12-30 19:30 | NUR ---
REPORT RECEIVED FROM DERRICK MOSES. PT IS WALKING AROUND IN HER ROOM, HAS BEEN REFUSING TO KEEP MONITOR CORDS IN PLACE. IS WANTING A POPSICLE AND SOME SNACKS.
--- NOTE | 2024-12-30 20:30 | NUR ---
IN TO SEE PT AND DISCUSS MEDS, SHE STATES SHE DOES NOT WANT HER SOLUMEDROL. SHE REQUESTS MORE SNACKS, PUDDING GIVEN.
[2024-12-30] MEDS ORDERED: DOXEPIN HCL 25 MG CAP PO SCH (21:00)
[2024-12-30] MEDS ORDERED: DOXEPIN HCL 50 MG CAP PO SCH (21:00)
--- NOTE | 2024-12-30 23:40 | NUR ---
PT AWAKE IN BED, ASKING FOR MEDICATION FOR SLEEPING, 2MG IV ATIVAN GIVEN PRN. PT AGREES TO LIE DOWN AND TRY TO SLEEP.
--- NOTE | 2024-12-31 02:27 | NUR ---
RT IN DOING TX WITH PT
--- NOTE | 2024-12-31 03:26 | NUR ---
PT RESTING WITH EYES CLOSED, RESP EVEN AND UNLABORED.
[2024-12-31 04:35] VITALS: BP 152/83
--- NOTE | 2024-12-31 04:38 | NUR ---
PT AWAKE TO GET UP TO BATHROOM, ASSESSMENT DONE. AFTER BATHROOM PT SAT ON BED, RUMMAGING AROUND IN PURSE, ASKING FOR NEB TREATMENT. RT CALLED. PT IS ANXIOUS, ASKS FOR ROBITUSSIN. LUNGS HAVE EXP WHEEZES, TIGHT. RR 28, SPO2 92% ON ROOM AIR. AGREES TO REPLACE VAPOTHERM. RT IN TO DO TREATMENT.
[2024-12-31 05:41] LABS: BASOPHILS 0.1 % (0.1-1.2); EOSINOPHILS 0 % (0.7-5.8); LYMPHOCYTES 6.3 % (19.3-51.7); MCH 31.4 PG (25.6-32.2); MCHC 32.2 g/dL (32.2-35.5); MCV 97.8 fL (79.4-94.8); MONOCYTES 3.2 % (4.7-12.5); NEUTROPHILS 89.3 % (34.0-71.1); RBC 4.07 M/uL (3.93-5.22)
--- NOTE | 2024-12-31 05:49 | NUR ---
PT CALLS TO ASK "I NEED MY INHALER" AND IS LOOKING ALL THROUGH HER STUFF ON TABLES AND BAGS FOR AN INHALER AND BELIEVES SOMEONE TOOK HER INHALER. DISCUSSED THIS WITH HER TRYING TO DETERMINE WHICH INHALER SHE IS REFERRING TO, SHE STATES "I JUST NEED SOME ALBUTEROL", ASKED PT IF SHE FEELING MORE SHORT OF BREATH AND SHE STATES "YES THATS WHY I WANT MY INHALER". PT ALSO JUST SPRAYED A LARGE AMOUNT OF HAIR SPRAY THAT IS SPREADING THROUGHOUT THE ENTIRE UNIT. THIS WAS DISCUSSED WITH PT AND SHE WAS ASKED NOT TO SPRAY ANYTHING SMELLY AND THAT IT CAN EXACERBATE ASTHMA AND SHE AGREES NOT TO DO IT AGAIN. SHE STATES IT IS "HAIR CONDITIONER" AND THAT SHE WAS PUTTING IT IN HER HAIR. SHAMPOO CAP OR HAIR WASHING OFFERED TO PT AND SHE DECLINES. PT ALSO IS CONTINUOUSLY REMOVING HER OXYGEN, SHE HAS IT OFF EVERY TIME THIS RN COMES INTO THE ROOM AND SHE STATES THE REASON IS THAT SHE WAS RECENTLY UP TO THE BATHROOM. PT AGREES TO PLACE OXYGEN BACK ON.
[2024-12-31 05:50] LABS: GLOMERULAR FILTRATION RATE,EST 98.0 mL/min (>60); UREA NITROGEN 24.0 mg/dL (7-18)
[2024-12-31] MEDS ORDERED: ALBUTEROL SULFATE 0.5% 2.5 MG/0.5 ML VIAL INH ONE (06:30)
--- NOTE | 2024-12-31 06:55 | NUR ---
PT LYING BACK IN BED DOING CONTINUOUS NEB TX.
--- NOTE | 2024-12-31 07:25 | NUR ---
RECIEVED MORNING REPORT. PT IS AWAKE IN BED, RT IN ROOM AT THIS TIME.
--- NOTE | 2024-12-31 08:00 | NUR ---
IN ROOM TO BRING PT BREAKFAST. PT IS AWAKE IN BED, ANXIOUS ABOUT WANTING TO GO HOME. PT WILLING THIS RN GETS VITAL SIGNS. PT SAT UP FOR BREAKFAST, DENIES NEEDS. AT THIS TIME. CALL LIGHT IN REACH.
[2024-12-31 08:30] VITALS: BP 155/80
--- NOTE | 2024-12-31 09:00 | NUR ---
PT UP IN ROOM, INDEPENDENTLY AT SINK BRUSHING TEETH.
--- NOTE | 2024-12-31 09:08 | NUR ---
MORNING ASSESSMENT COMPLETE. PT REMAINS ANXIOUS ABOUT BEING DISCHARGED. MD EVALUATED. PT PERSISTANT ON HAVING EVERYTHING SHE NEEDS AT HOME TO CARE FOR HER NEEDS. DISCUSSED MEDICATIONS PT WAS RECIEVING AND PT STATES SHE NEEDS ATIVAN WITH THE STEROIDS AND REQUESTING THAT NEEDS TO BE CHANGED. DISCUSSED PT RECIEVED THE ATIVAN AT 0600 AND IT IS ORDERED EVERY 4 HOURS. PT ANXIOUS BUT WILLING TO WAIT TILL NEXT AVAILABLE DOSE. PT IS ON THE PHONE WITH DAUGHTER ASKING TO COME GET PT. WHILE PT RESTING IN BED, LISTENED TO LUNG SOUNDS, EXP WHEEZE HEARD IN ALL LOBES, TIGHT BILAT UPPER. PT DENIES SOB, AND JUST FEELS ANXIOUS. CALL LIGHT IN REACH.
[2024-12-31] MEDS ORDERED: PREDNISONE20 MG PO (09:09)
[2024-12-31] MEDS ORDERED: CODEINE-GUAIFE120 ML PO (09:13)
[2024-12-31] MEDS ORDERED: ATIVAN2 MG PO (09:14)
--- NOTE | 2024-12-31 09:25 | NUR ---
PT OPENS ROOM DOOR, STATING SHE IS DRESSED, READY TO GO HOME. THIS RN EXPLAINED PHARMACY WILL BE DOWN SHORTLY TO TALK TO PT ABOUT HOME MEDICATIONS.
[2024-12-31] MEDS ORDERED: HEParin SOD (PORCINE) 500 UNIT/5 ML ML IV ONE (09:45)
--- NOTE | 2024-12-31 09:59 | NUR ---
PT PORT FLUSHED WITH 20ML NS TURBULENT FLUSHING AND FOLLOWED 5ML HEPARIN. PORT REMOVED AND SITE COVERED WITH A BAND AID. PT TOLERATED WELL.
== END 2024-12-31 10:10 | disposition home or self-care (01) | DRG 203 ==
LOC: ED 13:46 → CCU 16:53
PROVIDERS: Emergency Medicine; Student in an Organized Health Care Education/Training Program; ADMIT Student in an Organized Health Care Education/Training Program; ATTEND Student in an Organized Health Care Education/Training Program
PROC: 5A09457 Assistance with Respiratory Ventilation, 24-96 Consecutive Hours, Continuous Positive Airway Pressure (ICD-10-PCS; principal; 2024-12-29)
DX: J45.901 Unspecified asthma with (acute) exacerbation (principal); G43.909 Migraine, unspecified, not intractable, without status migrainosus; R73.03 Prediabetes; F41.9 Anxiety disorder, unspecified; I10 Essential (primary) hypertension; G47.00 Insomnia, unspecified; E87.6 Hypokalemia; E83.42 Hypomagnesemia; J44.9 Chronic obstructive pulmonary disease, unspecified; D72.829 Elevated white blood cell count, unspecified; R73.9 Hyperglycemia, unspecified; T38.0X5A Adverse effect of glucocorticoids and synthetic analogues, initial encounter; Z87.01 Personal history of pneumonia (recurrent); Z87.891 Personal history of nicotine dependence; Z90.49 Acquired absence of other specified parts of digestive tract; Z90.710 Acquired absence of both cervix and uterus; Z79.1 Long term (current) use of non-steroidal anti-inflammatories (NSAID); Z79.2 Long term (current) use of antibiotics; Z79.899 Other long term (current) drug therapy; Z88.2 Allergy status to sulfonamides; Z88.6 Allergy status to analgesic agent; Z88.8 Allergy status to other drugs, medicaments and biological substances
CPT/HCPCS: 36415; 71045; 71250; 80048; 80053; 82803; 83036; 83735; 84484; 85025; 85060; 87502; 93005; 93010; 94640; 94644; 94660; 94667; 94668; 94799; A9270; J1650; J1815; J2060; J2405; J2919; J3475; J3480; J3490; J7060; J7121; U0002